=== PATIENT | male | born 1975 | race African-American/Black ===

== ENCOUNTER 2021-05-21 10:53 | Emergency (ER) | payer SELFPAY ==
[~2021-05-21] VITALS: Ht 185.4 cm; Wt 74.8 kg
--- NOTE | 2021-05-21 11:07 | NUR ---
THE PATIENT [id number], FROM [place] C/O ANXIETY. THE PATIENT IS ALERT AND ORIENTED X4. DENIES SI/HI. IN ROOM AIR AND DENIES SOB. BREATHING EVEN AND UNLABORED. ATTACHED TO THE MONITOR. WILL CONTINUE TO MONITOR THE PATIENT.
[2021-05-21] MEDS ORDERED: clonazePAM 1 MG TABLET PO ONE (11:30)
[2021-05-21] MEDS ORDERED: clonazePAM 1 MG TABLET ONE (11:37)
[2021-05-21 11:51] LABS: BASOPHILS # (AUTO) 0.1 K/uL (0.0-0.2); BASOPHILS % (AUTO) 0.7 % (0.0-2.0); EOSINOPHILS % (AUTO) 2.6 % (0.0-6.0); HEMATOCRIT 41 % (39-51); HEMOGLOBIN 13.9 g/dL (13.5-17.5); LYMPHOCYTES # (AUTO) 1.4 K/uL (0.8-4.8); LYMPHOCYTES % (AUTO) 20.6 % (20.0-44.0); MEAN CORPUSCULAR HGB CONC 34 g/dl (31.0-36.0); MEAN CORPUSCULAR VOLUME 92 fL (80-96); MONOCYTES # (AUTO) 0.5 K/uL (0.1-1.30); MONOCYTES % (AUTO) 6.5 % (2.0-12.0); NEUTROPHILS # (AUTO) 4.8 K/uL (1.8-8.9); NEUTROPHILS % (AUTO) 69.6 % (43.0-81.0); PLATELET COUNT (AUTO) 231 K/uL (150-450); RED BLOOD CELL COUNT(AUTO) 4.41 MIL/uL (4.5-6.0)
[2021-05-21 11:54] LABS: BILIRUBIN,URINE Negative (NEGATIVE); COLOR,URINE YELLOW (YELLOW); LEUKOCYTE ESTERASE ,URINE Negative (NEGATIVE); NITRITE, URINE Negative (NEGATIVE); PH,URINE 7.5 (5.0-8.0); PROTEIN,URINE Negative (NEGATIVE); UGLUCOSE Negative (NEGATIVE); UROBILINOGEN,URINE 0.2 EU/dL (0.2)
[2021-05-21 11:59] LABS: CALCIUM, SERUM 9.2 mg/dL (8.5-10.1); CARBON DIOXIDE 29 mmol/L (21-32); CHLORIDE 104 mmol/L (98-107); CREATININE 1.1 mg/dL (0.6-1.3); GLUCOSE 97 mg/dL (74-106); POTASSIUM 4.6 mmol/L (3.5-5.1); SODIUM SERUM 140 mmol/L (136-145); UREA NITROGEN, BLOOD 18 mg/dL (7-18)
[2021-05-21 12:12] LABS: ACETAMINOPHEN 0 ug/ml (10-30); ALANINE AMINOTRANSFERASE 21 U/L (12-78); ALBUMIN 3.9 g/dL (3.4-5.0); ALCOHOL, BLOOD < 3 mg/dL (0-0); ALKALINE PHOSPHATASE 103 U/L (46-116); ASPARTATE AMINOTRANSFERASE 24 U/L (15-37); BILIRUBIN,TOTAL 0.2 mg/dL (0.2-1.0); TOTAL PROTEIN, SERUM 7.2 g/dL (6.4-8.2)
--- NOTE | 2021-05-21 13:31 | NUR ---
THE PATIENT RESTING COMFORTABLY IN ER BED 13. DENIES HAVING ANY DISTRESS. BREATHING EVEN AND UNLABORED. WILL CONTINUE TO MONITOR THE PATIENT.
[2021-05-21] MEDS ORDERED: CLON1TAB PO (14:03)
--- NOTE | 2021-05-21 14:11 | NUR ---
Patient discharged to home in stable condition. Written and verbal after care instructions given. Patient verbalizes understanding of instruction.
[2021-05-21 14:14] VITALS: BP 129/76
--- NOTE | 2021-05-21 14:25 | NUR ---
SS Note: SW attempted to meet with pt. and SW was notified by nursing that pt. refused to wait for SS consult for homeless D/C and left stating he will look for correction placement himself.
== END 2021-05-21 14:14 | disposition home or self-care (01) ==
LOC: ER 11:09
DX: F29 Unspecified psychosis not due to a substance or known physiological condition (principal); R41.0 Disorientation, unspecified; Z59.0 Homelessness
CPT/HCPCS: 36415; 80048-TC; 80076-TC; 85025-TC; G0480

== ENCOUNTER 2021-05-31 12:12 | Emergency (ER) | payer MEDICAID ==
[~2021-05-31] VITALS: Ht 170.2 cm; Wt 73.5 kg
[~2021-05-31 12:12] MED LIST: CLON1TAB PO
--- NOTE | 2021-05-31 12:12 | NUR ---
PT [address]IB[address] C/O HEARING VOICES/HALLUCINATION. REQUESTING VOLUNTARY PSYCH ADMISSION TO [facility]. PT IS AAOX4, NOT IN RESPIRATORY DISTRESS, V/S STABLE, KEPT RESTED AND COMFORTABLE.
--- NOTE | 2021-05-31 12:20 | NUR ---
AT BEDSIDE FOR EVAL.
--- NOTE | 2021-05-31 12:26 | NUR ---
URINE SPECIMEN COLLECTED AND SENT TO LAB.
[2021-05-31] MEDS ORDERED: LORAZEPAM 1 MG TABLET ONE (12:29)
[2021-05-31] MEDS ORDERED: LORAZEPAM 1 MG TABLET PO ONE (12:30)
[2021-05-31 12:47] LABS: BILIRUBIN,URINE Negative (NEGATIVE); COLOR,URINE YELLOW (YELLOW); LEUKOCYTE ESTERASE ,URINE Negative (NEGATIVE); NITRITE, URINE Negative (NEGATIVE); PH,URINE 7.5 (5.0-8.0); PROTEIN,URINE Negative (NEGATIVE); UGLUCOSE Negative (NEGATIVE); UROBILINOGEN,URINE 0.2 EU/dL (0.2)
--- NOTE | 2021-05-31 12:48 | NUR ---
COVID SPECIMEN COLLECTED AND SENT TO LAB.
[2021-05-31 12:51] LABS: BASOPHILS # (AUTO) 0.1 K/uL (0.0-0.2); BASOPHILS % (AUTO) 0.6 % (0.0-2.0); EOSINOPHILS % (AUTO) 2.2 % (0.0-6.0); HEMATOCRIT 38 % (39-51); HEMOGLOBIN 12.9 g/dL (13.5-17.5); LYMPHOCYTES % (AUTO) 23.9 % (20.0-44.0); MEAN CORPUSCULAR HGB CONC 34 g/dl (31.0-36.0); MEAN CORPUSCULAR VOLUME 92 fL (80-96); MONOCYTES # (AUTO) 0.6 K/uL (0.1-1.30); MONOCYTES % (AUTO) 6.8 % (2.0-12.0); NEUTROPHILS # (AUTO) 5.5 K/uL (1.8-8.9); NEUTROPHILS % (AUTO) 66.5 % (43.0-81.0); PLATELET COUNT (AUTO) 242 K/uL (150-450); RED BLOOD CELL COUNT(AUTO) 4.16 MIL/uL (4.5-6.0); WHITE BLOOD COUNT (AUTO) 8.2 K/uL (4.3-11.0)
[2021-05-31 12:59] LABS: CARBON DIOXIDE 26 mmol/L (21-32); CHLORIDE 107 mmol/L (98-107); CREATININE 1.1 mg/dL (0.6-1.3); GLUCOSE 101 mg/dL (74-106); POTASSIUM 3.8 mmol/L (3.5-5.1); SODIUM SERUM 144 mmol/L (136-145); UREA NITROGEN, BLOOD 16 mg/dL (7-18)
[2021-05-31 13:06] LABS: ACETAMINOPHEN < 10 ug/ml (10-30); ALANINE AMINOTRANSFERASE 22 U/L (12-78); ALBUMIN 3.7 g/dL (3.4-5.0); ALCOHOL, BLOOD < 3 mg/dL (0-0); ALKALINE PHOSPHATASE 78 U/L (46-116); ASPARTATE AMINOTRANSFERASE 19 U/L (15-37); BILIRUBIN,DIRECT 0.1 mg/dL (0.0-0.2); BILIRUBIN,TOTAL 0.3 mg/dL (0.2-1.0); TOTAL PROTEIN, SERUM 6.8 g/dL (6.4-8.2)
--- NOTE | 2021-05-31 16:50 | NUR ---
CALLED [facility] FOR UPDATE. STILL BEING REVIEWED BY NURSING MICROBIAL SPECIALIST.
[2021-05-31 17:23] VITALS: BP 115/60
--- NOTE | 2021-05-31 17:24 | NUR ---
CHAS CALLED PT ACCEPTED TO [facility] UNIT [address] ABEL PLEASE CALL [phone] FOR REPORT.
[2021-05-31] MEDS ORDERED: METFORMIN 500 MG TABLET PO ONE (17:30)
--- NOTE | 2021-05-31 17:30 | NUR ---
TRANSPORT [facility] CALLED ETA 5 MINS PER TANISHA.
--- NOTE | 2021-05-31 17:47 | NUR ---
REPORT GIVEN TO EMS FOR PT TRANSFER TO [facility].
== END 2021-05-31 17:50 ==
LOC: ER 12:29
DX: R44.1 Visual hallucinations (principal); R44.0 Auditory hallucinations; F41.9 Anxiety disorder, unspecified; Z59.0 Homelessness; Z20.822 Contact with and (suspected) exposure to COVID-19; Z82.49 Family history of ischemic heart disease and other diseases of the circulatory system
CPT/HCPCS: 36415; 80048; 80076; 80143; 80307; 80320; 81003; 85025; 87426; 99285; C9803; G0480

== ENCOUNTER 2021-06-06 17:51 | Emergency (ER) | payer MEDICAID ==
[~2021-06-06] VITALS: Ht 185.4 cm; Wt 77.1 kg
--- NOTE | 2021-06-06 18:05 | NUR ---
URINE SPECIMEN COLLECTED AND SENT TO LAB.
--- NOTE | 2021-06-06 18:07 | NUR ---
SEEN AND EXAMINED BY STEPAN ALICEA
[2021-06-06 18:50] LABS: BILIRUBIN,URINE NEGATIVE (NEGATIVE); COLOR,URINE YELLOW (YELLOW); LEUKOCYTE ESTERASE ,URINE NEGATIVE (NEGATIVE); NITRITE, URINE NEGATIVE (NEGATIVE); PROTEIN,URINE NEGATIVE (NEGATIVE); UGLUCOSE NEGATIVE (NEGATIVE); UROBILINOGEN,URINE 0.2 EU/dL (0.2)
[2021-06-06 19:04] LABS: ALANINE AMINOTRANSFERASE 27 U/L (12-78); ALBUMIN 4.1 g/dL (3.4-5.0); ALKALINE PHOSPHATASE 104 U/L (46-116); ASPARTATE AMINOTRANSFERASE 21 U/L (15-37); BILIRUBIN,DIRECT 0.1 mg/dL (0.0-0.2); BILIRUBIN,TOTAL 0.3 mg/dL (0.2-1.0); CALCIUM, SERUM 8.9 mg/dL (8.5-10.1); CARBON DIOXIDE 29 mmol/L (21-32); CHLORIDE 103 mmol/L (98-107); CREATININE 1.1 mg/dL (0.6-1.3); GLUCOSE 119 mg/dL (74-106); POTASSIUM 4.1 mmol/L (3.5-5.1); SODIUM SERUM 141 mmol/L (136-145); TOTAL PROTEIN, SERUM 7.8 g/dL (6.4-8.2); UREA NITROGEN, BLOOD 21 mg/dL (7-18)
[2021-06-06 19:05] LABS: ACETAMINOPHEN < 10 ug/ml (10-30); ALCOHOL, BLOOD < 3 mg/dL (0-0)
[2021-06-06 20:06] LABS: BASOPHILS % (AUTO) 0.4 % (0.0-2.0); EOSINOPHILS % (AUTO) 3.3 % (0.0-6.0); HEMATOCRIT 42 % (39-51); HEMOGLOBIN 14.5 g/dL (13.5-17.5); LYMPHOCYTES # (AUTO) 1.4 K/uL (0.8-4.8); LYMPHOCYTES % (AUTO) 25.7 % (20.0-44.0); MEAN CORPUSCULAR HGB CONC 34 g/dl (31.0-36.0); MEAN CORPUSCULAR VOLUME 92 fL (80-96); MONOCYTES # (AUTO) 0.6 K/uL (0.1-1.30); MONOCYTES % (AUTO) 10.6 % (2.0-12.0); NEUTROPHILS # (AUTO) 3.2 K/uL (1.8-8.9); PLATELET COUNT (AUTO) 227 K/uL (150-450); RED BLOOD CELL COUNT(AUTO) 4.61 MIL/uL (4.5-6.0); WHITE BLOOD COUNT (AUTO) 5.3 K/uL (4.3-11.0)
--- NOTE | 2021-06-06 20:33 | NUR ---
COVID AG SWAB DONE AND SENT TO LAB
--- NOTE | 2021-06-06 23:10 | NUR ---
FAXED FACESHEET AND CLINICALS TO [facility]
--- NOTE | 2021-06-07 00:46 | NUR ---
PATIENT ACCEPTED [facility]. DR ABEL, CALL FOR REPORT
--- NOTE | 2021-06-07 00:48 | NUR ---
[facility] ETA [phone]
--- NOTE | 2021-06-07 01:27 | NUR ---
REPORT GIVEN TO [facility], NURSE NEEDS TO TALK TO SUPERVIOR NO BED AVAILABLE.
--- NOTE | 2021-06-07 01:42 | NUR ---
REPORT GIVEN TO EMS. PATIENT GOING TO [facility]
[2021-06-07 02:14] VITALS: BP 111/64
== END 2021-06-07 01:43 ==
LOC: ER 17:59
DX: R45.851 Suicidal ideations (principal); F29 Unspecified psychosis not due to a substance or known physiological condition; Z20.822 Contact with and (suspected) exposure to COVID-19
CPT/HCPCS: 36415; 80048; 80076; 80143; 80307; 80320; 81003; 85025; 87426; 99285; C9803; G0480

== ENCOUNTER 2021-06-17 05:45 | Emergency (ER) | payer MEDICAID ==
[~2021-06-17] VITALS: Ht 185.4 cm; Wt 852.8 kg
[2021-06-17 05:51] VITALS: BP 108/70
[2021-06-17] MEDS ORDERED: ZOLP5TAB2 PO (06:19)
== END 2021-06-17 06:30 | disposition home or self-care (01) ==
LOC: ER 05:48
DX: G47.00 Insomnia, unspecified (principal); F41.9 Anxiety disorder, unspecified; F17.200 Nicotine dependence, unspecified, uncomplicated; Z59.00 Homelessness unspecified; Z79.899 Other long term (current) drug therapy

== ENCOUNTER 2021-06-17 15:54 | Emergency (ER) | payer MEDICAID ==
[~2021-06-17] VITALS: Ht 185.4 cm; Wt 83.5 kg
[~2021-06-17 15:54] MED LIST changes: +ZOLP5TAB2 PO
--- NOTE | 2021-06-17 16:00 | NUR ---
Patient came in to the er c/o suicidal thoughts " i want to OD on OTC pills". On room air, breathing evenly and unlabored. Sitter at bedside for constant monitoring. Will continue to monitor accordingly.
[2021-06-17 16:19] LABS: BASOPHILS % (AUTO) 0.5 % (0.0-2.0); EOSINOPHILS % (AUTO) 4.1 % (0.0-6.0); HEMATOCRIT 43 % (39-51); HEMOGLOBIN 14.6 g/dL (13.5-17.5); LYMPHOCYTES % (AUTO) 27.3 % (20.0-44.0); MEAN CORPUSCULAR HGB CONC 34 g/dl (31.0-36.0); MEAN CORPUSCULAR VOLUME 92 fL (80-96); MONOCYTES # (AUTO) 0.8 K/uL (0.1-1.30); MONOCYTES % (AUTO) 11.7 % (2.0-12.0); NEUTROPHILS # (AUTO) 4.1 K/uL (1.8-8.9); NEUTROPHILS % (AUTO) 56.4 % (43.0-81.0); PLATELET COUNT (AUTO) 227 K/uL (150-450); WHITE BLOOD COUNT (AUTO) 7.3 K/uL (4.3-11.0)
[2021-06-17 16:26] LABS: CALCIUM, SERUM 8.9 mg/dL (8.5-10.1); CARBON DIOXIDE 27 mmol/L (21-32); CHLORIDE 106 mmol/L (98-107); CREATININE 1.2 mg/dL (0.6-1.3); GLUCOSE 93 mg/dL (74-106); SODIUM SERUM 141 mmol/L (136-145); UREA NITROGEN, BLOOD 17 mg/dL (7-18)
[2021-06-17] MEDS ORDERED: LORAZEPAM 1 MG TABLET ONE (16:28)
[2021-06-17] MEDS ORDERED: LORAZEPAM 1 MG TABLET PO ONE (16:30)
[2021-06-17 16:32] LABS: ALANINE AMINOTRANSFERASE 30 U/L (12-78); ALBUMIN 3.9 g/dL (3.4-5.0); ALCOHOL, BLOOD < 3 mg/dL (0-0); ALKALINE PHOSPHATASE 96 U/L (46-116); ASPARTATE AMINOTRANSFERASE 20 U/L (15-37); BILIRUBIN,DIRECT 0.1 mg/dL (0.0-0.2); BILIRUBIN,TOTAL 0.3 mg/dL (0.2-1.0); TOTAL PROTEIN, SERUM 7.3 g/dL (6.4-8.2)
--- NOTE | 2021-06-17 16:32 | NUR ---
covid swab and urine collected and sent to lab.
[2021-06-17 16:33] LABS: ACETAMINOPHEN < 0 ug/ml (10-30)
[2021-06-17 16:38] LABS: BILIRUBIN,URINE Negative (NEGATIVE); COLOR,URINE YELLOW (YELLOW); LEUKOCYTE ESTERASE ,URINE Negative (NEGATIVE); NITRITE, URINE Negative (NEGATIVE); PROTEIN,URINE Negative (NEGATIVE); UGLUCOSE Negative (NEGATIVE); UROBILINOGEN,URINE 0.2 EU/dL (0.2)
[2021-06-17 16:42] LABS: RBC,URINE 0-2 /HPF (0-2); WBC,URINE 0-2 /HPF (0-3)
[2021-06-17 16:43] LABS: BACTERIA,URINE Few /HPF (None Seen); SQUAMOUS EPITHELIAL CELL,UR Few /HPF (None Seen); URINE AMORPHOUS URATE Moderate /HPF (None Seen)
--- NOTE | 2021-06-17 17:45 | NUR ---
FAXED CLINICALS TO [facility].
--- NOTE | 2021-06-17 18:07 | NUR ---
CALLED [facility] TO FOLLOW UP ON ACCEPTANCE, THEY WILL CALL US BACK.
--- NOTE | 2021-06-17 20:13 | NUR ---
CALLED [facility] WILL UPDATE US IN A FEW MINS.
--- NOTE | 2021-06-17 20:55 | NUR ---
PER ART AT [facility]; PT GOT ACCEPTED AT [facility] BY DR NEUMANN, UNIT 2, # FOR REPORT: [phone]
--- NOTE | 2021-06-17 21:06 | NUR ---
[facility] ARRANGED
--- NOTE | 2021-06-17 22:02 | NUR ---
REPORT GIVEN TO ROX
--- NOTE | 2021-06-17 22:55 | NUR ---
[facility] AT BEDSIDE TO CATALYST OPERATOR THE PT. REPORT GIVEN
[2021-06-17 23:08] VITALS: BP 127/72
== END 2021-06-17 22:55 ==
LOC: ER 15:55
DX: R45.851 Suicidal ideations (principal); F25.9 Schizoaffective disorder, unspecified; F41.9 Anxiety disorder, unspecified; Z20.822 Contact with and (suspected) exposure to COVID-19; F32.A Depression, unspecified
CPT/HCPCS: 36415; 80048; 80076; 80143; 80307; 80320; 81001; 85025; 87426; 99285; C9803; G0480

== ENCOUNTER 2021-06-26 19:16 | Emergency (ER) | payer MEDICAID ==
[~2021-06-26] VITALS: Ht 185.4 cm; Wt 81.6 kg
[2021-06-26 22:47] VITALS: BP 132/62
[2021-06-26] MEDS ORDERED: LORA-259 PO (22:49)
--- NOTE | 2021-06-26 22:51 | NUR ---
Patient discharged to home in stable condition. Written and verbal after care instructions given. Patient verbalizes understanding of instruction.
== END 2021-06-26 22:52 | disposition home or self-care (01) ==
LOC: ER 19:24
DX: F41.9 Anxiety disorder, unspecified (principal); Z76.0 Encounter for issue of repeat prescription; G47.00 Insomnia, unspecified; F17.200 Nicotine dependence, unspecified, uncomplicated; Z60.2 Problems related to living alone; Z79.899 Other long term (current) drug therapy

== ENCOUNTER 2021-07-08 08:16 | Emergency (ER) | payer SELFPAY ==
[~2021-07-08] VITALS: Ht 185.4 cm; Wt 81.6 kg
[~2021-07-08 08:16] MED LIST changes: +LORA-259 PO
--- NOTE | 2021-07-08 08:45 | NUR ---
THE PATIENT BIBS FOR FEELING ANXIOUS, HAVING AUDITORY HALLUCINATIONS BUT CAN`T RECALL WHAT ARE THE VOICES SAYING. DENIES SI/HI. THE PATIENT WANTS TO GO TO [facility]. ALERT AND ORIENTED X4. DENIES PAIN. IN ROOM AIR AND DENIES SOB. RESPIRATION REGULAR AND UNLABORED. WILL CONTINUE TO MONITOR THE PATIENT.
--- NOTE | 2021-07-08 09:04 | NUR ---
URINE COLLECTED AND SENT TO THE LAB
--- NOTE | 2021-07-08 09:09 | NUR ---
COVID SWAB DONE AND SENT TO THE LAB
[2021-07-08 09:24] LABS: BASOPHILS % (AUTO) 0.3 % (0.0-2.0); EOSINOPHILS % (AUTO) 3.8 % (0.0-6.0); HEMATOCRIT 43 % (39-51); HEMOGLOBIN 14.5 g/dL (13.5-17.5); LYMPHOCYTES # (AUTO) 1.8 K/uL (0.8-4.8); MEAN CORPUSCULAR HGB CONC 34 g/dl (31.0-36.0); MEAN CORPUSCULAR VOLUME 92 fL (80-96); MONOCYTES # (AUTO) 0.6 K/uL (0.1-1.30); MONOCYTES % (AUTO) 8.4 % (2.0-12.0); NEUTROPHILS # (AUTO) 4.2 K/uL (1.8-8.9); NEUTROPHILS % (AUTO) 61.5 % (43.0-81.0); PLATELET COUNT (AUTO) 215 K/uL (150-450); RED BLOOD CELL COUNT(AUTO) 4.63 MIL/uL (4.5-6.0); WHITE BLOOD COUNT (AUTO) 6.8 K/uL (4.3-11.0)
[2021-07-08 09:26] LABS: BILIRUBIN,URINE NEGATIVE (NEGATIVE); COLOR,URINE YELLOW (YELLOW); LEUKOCYTE ESTERASE ,URINE NEGATIVE (NEGATIVE); NITRITE, URINE NEGATIVE (NEGATIVE); PROTEIN,URINE NEGATIVE (NEGATIVE); UGLUCOSE NEGATIVE (NEGATIVE); UROBILINOGEN,URINE 0.2 EU/dL (0.2)
[2021-07-08 09:40] LABS: CALCIUM, SERUM 8.7 mg/dL (8.5-10.1); CARBON DIOXIDE 30 mmol/L (21-32); CHLORIDE 106 mmol/L (98-107); CREATININE 1.2 mg/dL (0.6-1.3); GLUCOSE 83 mg/dL (74-106); POTASSIUM 3.6 mmol/L (3.5-5.1); SODIUM SERUM 142 mmol/L (136-145); UREA NITROGEN, BLOOD 11 mg/dL (7-18)
[2021-07-08 09:44] LABS: ACETAMINOPHEN < 10 ug/ml (10-30); ALANINE AMINOTRANSFERASE 53 U/L (12-78); ALBUMIN 3.9 g/dL (3.4-5.0); ALCOHOL, BLOOD < 3 mg/dL (0-0); ALKALINE PHOSPHATASE 107 U/L (46-116); ASPARTATE AMINOTRANSFERASE 35 U/L (15-37); BILIRUBIN,DIRECT 0.1 mg/dL (0.0-0.2); BILIRUBIN,TOTAL 0.3 mg/dL (0.2-1.0); TOTAL PROTEIN, SERUM 7.4 g/dL (6.4-8.2)
[2021-07-08] MEDS ORDERED: LORAZEPAM 1 MG TABLET ONE (09:57)
[2021-07-08] MEDS ORDERED: LORAZEPAM 1 MG TABLET PO ONE (10:00)
--- NOTE | 2021-07-08 12:03 | NUR ---
THE PATIENT IS HAVING LUNCH. TOLERATES PROVIDED MEAL WELL.
--- NOTE | 2021-07-08 13:00 | NUR ---
FAXED CLINICALS TO [facility] [place].
[2021-07-08 14:30] VITALS: BP 117/65
[2021-07-08] MEDS ORDERED: CLON1TAB12 PO (15:05)
--- NOTE | 2021-07-08 15:13 | NUR ---
"SS consult: SS consult requested for homelessness & mental health concerns. Pt. is a 45-year-old male who presented to the ER wanting medical clearance to go to [facility][[address] [place] [address] FAX:[phone]] for medication adjustement per pt. Per the EMR, pt. is homeless and is feeling anxious. Upon SS consult, pt. is A&O x4 and appears unkempt. Pt. presents with an anxious mood and speech is WNL. Pt. was pleasant & cooperative throughout SS assessment. SW explored pt. 's living situation and pt. he has been homeless for three months. SW offered homeless resources and pt. accepted. Pt. stated he will be moving into transitional housing on July 13. Pt. stated he receives SSDI & EBT. SW explored pt.'s psychiatric history. Pt. stated he has been diagnosed with Generalized Anxiety Disorder and Insomnia. However, pt. also stated he is currently not on medicationa dn that is why he is seeking medical attention. Pt. stated he is having auditory hallucinations due to his chronic insomnia. Pt. stated he wants medication so he can sleep at night. Pt. denies current SI and stated he had SI a month ago and denies current SI. Pt. denies HI and denies visual hallucinations. SW explored pt.'s support system and pt. states he has some family who he keeps in contact with. Pt. signed homeless waive and it was placed in the pt.'s chart. DANIELE provided pt. with homeless resources and pt. accepted them. Plan: Pt. was referred to [facility] [[address] [place] [address] FAX:[phone]] for inpatient psychiatric treatment. DANIELE was notified that pt. was not accepted. DANIELE provided pt. with outpatient mental health resources and pt. accepted them. Mental Health resources provided: [facility] [address] [place] [address] ; [facility], [facility]. [address] [facility] [address], [place] [address] ; [facility] [address] [place] [address] ; [facility] [address] [place], [place] [id number] Healthcare Clinics: [facility] [address] [facility], [address] [place]. [place] ; [facility] [address] [facility] [address] [place] [address]; [facility] [address] [place] [address] [phone]) [phone] Counseling--Outpatient [facility] [address] [facility], [place] [address] (Specializes in in-depth psychotherapy for emotional distress: anxiety, depression, interpersonal conflicts, life transitions, childhood abuse) [facility] [address] [place] [address] (Assist with solving problem marital difficulties, separation & divorce, aging parents, & grief, chronic & terminal illness) [facility] [address] [place] [address] (Deal with loss & grief, anxiety, marital difficulties) Homebound/Mental Health Services [address] [facility], [address] [place] [address] (Provide in-home mental services to people who are incapable of leaving their homes) [facility] for Needs of the Elderly Senior Service/Resource Center [address] [place] [address] [facility] [address] [facility] [place] [address] [address] [facility] Partial Hospitalization and Intensive Outpatient Program (Managed Care and [place] Only)[address] N[address]. [facility] [phone] [facility] Partial Hospitalization and Outpatient Oewcdjy[address] [place], [place] [phone] KENY EDGAR [facility] [id number] [address]den [facility]. [address] [place], [place] [phone] [facility] Partial Hospitalization and Outpatient [id number] Shavon Mclain, [phone] Substance Abuse resources provided included: [facility] Substance Abuse Self-Helpline ([facility]) ; CRI -HELP [address] [facility]. [place] [address] ; [facility] [address] [facility] [address] ; [facility] [address] [facility] [place] [address] ; [facility] [address] [facility] [phone] ; [facility] [address] [facility] [address] ; [facility] [address] [facility] [phone] ; [facility] Substance Abuse Helpline([facility] ; [facility] ; [facility] [place]; [facility] [place]; Cri[facility]Help [place]; [facility] Keny kelin; [place] [facility]; [place]; [facility] [place] [facility]; [facility]'s [place] [facility] [place]; Alcoholics Anonymous -SFV; Md-Fgtx-Uzninqc ; Marijuana Anonymous -SFV; Narcotics Anonymous www.na.org; Year-round shelters: [facility] [place] [address] [place] [address] ; [facility] [place] [address] [place] [address]; [facility] [address] [facility] [address] Winter Shelters: Bob Durand [place] Provider: [facility] Address: [address] [place], [address] # of Beds: 47 Population Served: [facility] 6 | [facility] Bernice Elias [place] Provider: [facility] Last Address: [address] [facility], [address] # of Beds: 66 Population Served: [facility] Yuhaaviatam [place] Provider: First to Serve Address: [address] [facility], [address] # of Beds: 56 Population Served: [facility] Hernán [place] Provider: [facility] Address: [address] [facility], [address] # of Beds: 49 Population Served: [facility] SPA 8 | [facility] Provider: First to Serve Address: [address] [place], [address] # of Beds: 37 Population Served: [facility] Hygiene: [facility] [place]: [address] Juvebeth Enriquez ; [place] [facility] [address] [facility] ; [facility] 5[address] Keny Tejeda . Food Resources: [place] [facility] at [facility]- [address]. [place]; Meet Each Need with Dignity ([facility]) [address] [address]; [facility] [address] Avjoanna [place]; [facility] [address]71 Jelly Reaves."
[2021-07-26] MEDS ORDERED: CALC355O18 PO (00:06)
[2021-07-26] MEDS ORDERED: ZOLP10TA2 PO (00:06)
[2021-07-26] MEDS ORDERED: OMEP40CA21 PO (00:09)
== END 2021-07-08 15:30 | disposition home or self-care (01) ==
LOC: ER 08:19
DX: G47.00 Insomnia, unspecified (principal); Z59.01 Sheltered homelessness; F41.9 Anxiety disorder, unspecified; F32.A Depression, unspecified; F17.200 Nicotine dependence, unspecified, uncomplicated; Z20.822 Contact with and (suspected) exposure to COVID-19; Z53.8 Procedure and treatment not carried out for other reasons
CPT/HCPCS: 36415; 80048; 80076; 80143; 80307; 80320; 81003; 85025; 87426; 99283; C9803; G0480

== ENCOUNTER 2021-07-17 18:20 | Emergency (ER) | payer MEDICAID ==
[~2021-07-17] VITALS: Ht 185.4 cm; Wt 81.6 kg
[2021-07-17 18:54] VITALS: BP 113/81
[2021-07-17 19:22] LABS: BASOPHILS % (AUTO) 0.5 % (0.0-2.0); EOSINOPHILS % (AUTO) 2.8 % (0.0-6.0); HEMATOCRIT 41 % (39-51); HEMOGLOBIN 13.6 g/dL (13.5-17.5); LYMPHOCYTES # (AUTO) 2.3 K/uL (0.8-4.8); LYMPHOCYTES % (AUTO) 30.1 % (20.0-44.0); MEAN CORPUSCULAR HGB CONC 33 g/dl (31.0-36.0); MEAN CORPUSCULAR VOLUME 94 fL (80-96); MONOCYTES # (AUTO) 0.7 K/uL (0.1-1.30); MONOCYTES % (AUTO) 8.4 % (2.0-12.0); NEUTROPHILS # (AUTO) 4.5 K/uL (1.8-8.9); NEUTROPHILS % (AUTO) 58.2 % (43.0-81.0); PLATELET COUNT (AUTO) 249 K/uL (150-450); RED BLOOD CELL COUNT(AUTO) 4.38 MIL/uL (4.5-6.0); WHITE BLOOD COUNT (AUTO) 7.8 K/uL (4.3-11.0)
--- NOTE | 2021-07-17 19:40 | NUR ---
URINE COLLECTED AND SENT TO LAB
[2021-07-17 19:44] LABS: CALCIUM, SERUM 8.5 mg/dL (8.5-10.1); CARBON DIOXIDE 29 mmol/L (21-32); CHLORIDE 105 mmol/L (98-107); GLUCOSE 70 mg/dL (74-106); POTASSIUM 3.6 mmol/L (3.5-5.1); SODIUM SERUM 140 mmol/L (136-145); UREA NITROGEN, BLOOD 13 mg/dL (7-18)
[2021-07-17 19:50] LABS: ACETAMINOPHEN 3 ug/ml (10-30); ALANINE AMINOTRANSFERASE 14 U/L (12-78); ALBUMIN 3.8 g/dL (3.4-5.0); ALCOHOL, BLOOD < 3 mg/dL (0-0); ALKALINE PHOSPHATASE 93 U/L (46-116); ASPARTATE AMINOTRANSFERASE 17 U/L (15-37); BILIRUBIN,DIRECT 0.1 mg/dL (0.0-0.2); BILIRUBIN,TOTAL 0.1 mg/dL (0.2-1.0); TOTAL PROTEIN, SERUM 7.3 g/dL (6.4-8.2)
[2021-07-17] MEDS ORDERED: clonazePAM 1 MG TABLET PO ONE (20:00)
[2021-07-17 20:01] LABS: BILIRUBIN,URINE Negative (NEGATIVE); COLOR,URINE YELLOW (YELLOW); LEUKOCYTE ESTERASE ,URINE Negative (NEGATIVE); NITRITE, URINE Negative (NEGATIVE); PROTEIN,URINE Negative (NEGATIVE); UGLUCOSE Negative (NEGATIVE); UROBILINOGEN,URINE 0.2 EU/dL (0.2)
--- NOTE | 2021-07-17 20:15 | NUR ---
PT IS NOT IN ROOM. CHECKED IN THE RESTROOM AND OUTSIDE OF THE R BUT NO WHERE TO BE FOUND. PT WAS LAST SEEN WHEN URINE WAS COLLECTED. MADE AWARE
[2021-07-26] MEDS ORDERED: CALC355O18 PO (00:06)
[2021-07-26] MEDS ORDERED: ZOLP10TA2 PO (00:06)
[2021-07-26] MEDS ORDERED: OMEP40CA21 PO (00:09)
== END 2021-07-17 20:20 | disposition left against medical advice (07) ==
LOC: ER 18:24
DX: R44.0 Auditory hallucinations (principal); R44.1 Visual hallucinations; F41.9 Anxiety disorder, unspecified; G47.00 Insomnia, unspecified; Z60.2 Problems related to living alone; Z79.899 Other long term (current) drug therapy
CPT/HCPCS: 36415; 80048-TC; 80076-TC; 85025-TC; G0480

== ENCOUNTER 2021-07-18 11:42 | Emergency (ER) | payer MEDICAID ==
[~2021-07-18] VITALS: Ht 185.4 cm; Wt 81.6 kg
--- NOTE | 2021-07-18 12:00 | NUR ---
PT BIB SELF RQUESTING MED CLEARANCE FOR VOLUNTARY PSYCH ADMISSION TO [facility]. DENIES SI/HI. PT IS AAOX4, NOT IN RESPIRATORY DISTRESS, V/S STABLE, KEPT RESTED AND COMFORTABLE. WILL CONTINUE TO MONITOR.
--- NOTE | 2021-07-18 12:05 | NUR ---
URINE SPECIMEN COLLECTED AND SENT TO LAB.
[2021-07-18] MEDS ORDERED: OLANZAPINE 5 MG TABLET PO ONE (12:30)
[2021-07-18 12:49] LABS: BASOPHILS % (AUTO) 0.4 % (0.0-2.0); EOSINOPHILS % (AUTO) 3.3 % (0.0-6.0); HEMATOCRIT 41 % (39-51); HEMOGLOBIN 13.7 g/dL (13.5-17.5); LYMPHOCYTES # (AUTO) 1.6 K/uL (0.8-4.8); LYMPHOCYTES % (AUTO) 30.8 % (20.0-44.0); MEAN CORPUSCULAR HGB CONC 34 g/dl (31.0-36.0); MEAN CORPUSCULAR VOLUME 93 fL (80-96); MONOCYTES # (AUTO) 0.4 K/uL (0.1-1.30); MONOCYTES % (AUTO) 7.2 % (2.0-12.0); NEUTROPHILS % (AUTO) 58.3 % (43.0-81.0); PLATELET COUNT (AUTO) 241 K/uL (150-450); WHITE BLOOD COUNT (AUTO) 5.2 K/uL (4.3-11.0)
[2021-07-18 12:53] LABS: BILIRUBIN,URINE NEGATIVE (NEGATIVE); COLOR,URINE YELLOW (YELLOW); LEUKOCYTE ESTERASE ,URINE NEGATIVE (NEGATIVE); NITRITE, URINE NEGATIVE (NEGATIVE); PROTEIN,URINE NEGATIVE (NEGATIVE); UGLUCOSE NEGATIVE (NEGATIVE); UROBILINOGEN,URINE 0.2 EU/dL (0.2)
--- NOTE | 2021-07-18 13:18 | NUR ---
COVID SWAB COLLECTED AND SENT TO LAB
[2021-07-18 13:19] LABS: CALCIUM, SERUM 8.6 mg/dL (8.5-10.1); CARBON DIOXIDE 29 mmol/L (21-32); CHLORIDE 105 mmol/L (98-107); CREATININE 1.1 mg/dL (0.6-1.3); GLUCOSE 110 mg/dL (74-106); POTASSIUM 3.8 mmol/L (3.5-5.1); SODIUM SERUM 139 mmol/L (136-145); UREA NITROGEN, BLOOD 11 mg/dL (7-18)
[2021-07-18 13:24] LABS: ALANINE AMINOTRANSFERASE 24 U/L (12-78); ALBUMIN 3.8 g/dL (3.4-5.0); ALKALINE PHOSPHATASE 90 U/L (46-116); ASPARTATE AMINOTRANSFERASE 17 U/L (15-37); BILIRUBIN,DIRECT 0.1 mg/dL (0.0-0.2); BILIRUBIN,TOTAL 0.2 mg/dL (0.2-1.0); TOTAL PROTEIN, SERUM 7.3 g/dL (6.4-8.2)
[2021-07-18 13:28] LABS: ALCOHOL, BLOOD < 3 mg/dL (0-0)
--- NOTE | 2021-07-18 16:38 | NUR ---
TRANSFER INFO: PT ACCEPTED AT [facility] BY DR NEUMANN, RN FOR REPORT [phone], ETA 45 MIN TO 1 HOUR
[2021-07-26] MEDS ORDERED: ZOLP10TA2 PO (00:06)
[2021-07-26] MEDS ORDERED: CALC355O18 PO (00:06)
[2021-07-26] MEDS ORDERED: OMEP40CA21 PO (00:09)
[2021-08-04 08:17] VITALS: BP 127/66
== END 2021-07-18 16:03 ==
LOC: ER 11:51
DX: F32.A Depression, unspecified (principal); F25.9 Schizoaffective disorder, unspecified; F41.9 Anxiety disorder, unspecified; F17.200 Nicotine dependence, unspecified, uncomplicated; Z59.00 Homelessness unspecified; G47.00 Insomnia, unspecified; Z79.899 Other long term (current) drug therapy; Z20.822 Contact with and (suspected) exposure to COVID-19
CPT/HCPCS: 36415; 80048; 80076; 80307; 80320; 81003; 85025; 87426; 99285; C9803; G0480

== ENCOUNTER 2021-08-17 04:33 | Emergency (ER) | payer MEDICAID ==
[~2021-08-17] VITALS: Ht 185.4 cm; Wt 86.2 kg
[~2021-08-17 04:33] MED LIST changes: +CALC355O18 PO; +OMEP40CA21 PO; +ZOLP10TA2 PO
[2021-08-17 04:50] VITALS: BP 143/79
[2021-08-17] MEDS ORDERED: CLON0.122 PO (04:59)
[2021-08-17] MEDS ORDERED: ZOLP10TA2 PO (04:59)
--- NOTE | 2021-08-17 05:01 | NUR ---
Patient discharged to home in stable condition. Written and verbal after care instructions given. Patient verbalizes understanding of instruction. RX GIVEN
== END 2021-08-17 05:02 | disposition home or self-care (01) ==
LOC: ER 04:35
DX: Z76.0 Encounter for issue of repeat prescription (principal); F41.9 Anxiety disorder, unspecified; G47.00 Insomnia, unspecified; F25.9 Schizoaffective disorder, unspecified; F17.200 Nicotine dependence, unspecified, uncomplicated; Z60.2 Problems related to living alone; Z79.899 Other long term (current) drug therapy

== ENCOUNTER 2021-11-01 17:31 | Emergency (ER) | payer SELFPAY ==
[~2021-11-01] VITALS: Ht 185.4 cm; Wt 90.7 kg
[~2021-11-01 17:31] MED LIST changes: +CLON0.122 PO
--- NOTE | 2021-11-01 18:06 | NUR ---
TO ER BED 14, C/O ABD PAIN WITH DIARRHEA & VOMITING SINCE THIS AM. HX OF ULCERATIVE COLITIS, P/S 03/21, AAOX3, BREATHING EVEN AND NON LABORED, AWAITING MD FERGUSON
[2021-11-01] MEDS ORDERED: MAG HYDROX/AL HYDROX/SIMETH 30 ML UDC ONE (19:17)
[2021-11-01] MEDS ORDERED: LIDOCAINE VISCOUS 2% UD 15 ML UDC ONE (19:17)
[2021-11-01] MEDS ORDERED: MAG HYDROX/AL HYDROX/SIMETH 30 ML UDC PO ONE (19:30)
[2021-11-01] MEDS ORDERED: LIDOCAINE VISCOUS 2% UD 15 ML UDC MM ONE (19:30)
[2021-11-01] MEDS ORDERED: OMEP20CA15 PO (20:35)
--- NOTE | 2021-11-01 20:55 | NUR ---
Patient discharged to home in stable condition. Written and verbal after care instructions given. Patient verbalizes understanding of instruction. PT ambulatory with a steady gait
[2021-11-01] MEDS ORDERED: [UNRECOGNIZED DRUG - CODE] PO (20:56)
[2021-11-01 20:57] VITALS: BP 121/75
== END 2021-11-01 20:55 | disposition home or self-care (01) ==
LOC: ER 17:45
DX: K29.70 Gastritis, unspecified, without bleeding (principal); F41.9 Anxiety disorder, unspecified; G47.00 Insomnia, unspecified; F25.9 Schizoaffective disorder, unspecified; F17.200 Nicotine dependence, unspecified, uncomplicated; Z59.00 Homelessness unspecified; Z79.899 Other long term (current) drug therapy

== ENCOUNTER 2021-11-14 16:07 | Emergency (ER) | payer MEDICAID ==
[~2021-11-14] VITALS: Ht 185.4 cm; Wt 84.8 kg
[~2021-11-14 16:07] MED LIST changes: +OMEP20CA15 PO; +[UNRECOGNIZED DRUG - CODE] PO
--- NOTE | 2021-11-14 16:16 | NUR ---
TO ER BED 12, BIB SELF C/O HEADACHE STARTED 3 HRS AGO, AAOX3, BRATHING EVEN AND NON LABORED, CONNECTED TO MONITOR, AWAITING MD FERGUSON
--- NOTE | 2021-11-14 16:20 | NUR ---
DR GREENWOOD AT BEDSIDE
[2021-11-14] MEDS ORDERED: ACETAMINOPHEN ES 500 MG TABLET ONE (16:48)
[2021-11-14] MEDS ORDERED: LORAZEPAM 0.5 MG TABLET ONE (16:48)
[2021-11-14 16:57] LABS: BASOPHILS % (AUTO) 0.6 % (0.0-2.0); EOSINOPHILS % (AUTO) 1.4 % (0.0-6.0); HEMATOCRIT 43 % (39-51); HEMOGLOBIN 14.7 g/dL (13.5-17.5); LYMPHOCYTES # (AUTO) 1.8 K/uL (0.8-4.8); LYMPHOCYTES % (AUTO) 20.5 % (20.0-44.0); MEAN CORPUSCULAR HGB CONC 34 g/dl (31.0-36.0); MEAN CORPUSCULAR VOLUME 90 fL (80-96); MONOCYTES # (AUTO) 0.6 K/uL (0.1-1.30); MONOCYTES % (AUTO) 6.8 % (2.0-12.0); NEUTROPHILS # (AUTO) 6.1 K/uL (1.8-8.9); NEUTROPHILS % (AUTO) 70.7 % (43.0-81.0); PLATELET COUNT (AUTO) 256 K/uL (150-450); RED BLOOD CELL COUNT(AUTO) 4.75 MIL/uL (4.5-6.0); WHITE BLOOD COUNT (AUTO) 8.6 K/uL (4.3-11.0)
[2021-11-14] MEDS ORDERED: ACETAMINOPHEN ES 500 MG TABLET PO ONE (17:00)
[2021-11-14] MEDS ORDERED: LORAZEPAM 1 MG TABLET PO ONE (17:00)
[2021-11-14 17:06] LABS: CALCIUM, SERUM 9.6 mg/dL (8.5-10.1); CREATININE 1.4 mg/dL (0.6-1.3); POTASSIUM 3.8 mmol/L (3.5-5.1)
[2021-11-14] MEDS ORDERED: IV NS 0.9% 500 ML BAG IV ONE (17:30)
--- NOTE | 2021-11-14 18:59 | NUR ---
IV removed. Catheter intact and site benign. Pressure and 4x4 applied to site. No bleeding noted.
[2021-11-14] MEDS ORDERED: BUTA1CAP46 PO (19:23)
--- NOTE | 2021-11-14 19:23 | NUR ---
Patient discharged to home in stable condition. Written and verbal after care instructions given. Patient verbalizes understanding of instruction.
[2021-11-14 19:25] VITALS: BP 122/80
== END 2021-11-14 19:26 | disposition home or self-care (01) ==
LOC: ER 16:09
DX: G43.909 Migraine, unspecified, not intractable, without status migrainosus (principal); R25.1 Tremor, unspecified; R00.0 Tachycardia, unspecified; F25.9 Schizoaffective disorder, unspecified; F41.9 Anxiety disorder, unspecified; G47.00 Insomnia, unspecified; F17.200 Nicotine dependence, unspecified, uncomplicated; Z60.2 Problems related to living alone; Z79.899 Other long term (current) drug therapy
CPT/HCPCS: 36415; 80048; 84484; 85025; 93005 ×2; 96360; 99285; J7030

== ENCOUNTER 2021-11-28 13:27 | Emergency (ER) | payer MEDICAID ==
[~2021-11-28] VITALS: Ht 185.4 cm; Wt 86.2 kg
[~2021-11-28 13:27] MED LIST changes: +BUTA1CAP46 PO
--- NOTE | 2021-11-28 14:40 | NUR ---
Dr Finch in room for eval
--- NOTE | 2021-11-28 14:45 | NUR ---
PT SEEN AND EXAMINED BY .
[2021-11-28] MEDS ORDERED: BUTALB/APAP/CAFFEINE 1 EACH TABLET PO PRN (15:00)
[2021-11-28] MEDS ORDERED: HYDROCODONE/APAP 5/325MG TABLET PO ONE (15:00)
[2021-11-28] MEDS ORDERED: HYDROCODONE/APAP 5/325MG TABLET ONE (15:00)
[2021-11-28] MEDS ORDERED: BUTA1CAP46 PO (15:15)
--- NOTE | 2021-11-28 15:26 | NUR ---
Patient given written and verbal discharge instructions. Patient verbalizes understanding of instructions. Patient is ambulatory with steady gait. Refuses offer of fdc placement. Patient given list of available shelters in surrounding area. In proper clothing. Name band removed. All belongings with the patient.
[2021-11-28 15:29] VITALS: BP 145/81
== END 2021-11-28 15:30 | disposition home or self-care (01) ==
LOC: ER 13:28
DX: R51.9 Headache, unspecified (principal); G40.909 Epilepsy, unspecified, not intractable, without status epilepticus; F41.9 Anxiety disorder, unspecified; G47.00 Insomnia, unspecified; F25.9 Schizoaffective disorder, unspecified; F17.200 Nicotine dependence, unspecified, uncomplicated; Z60.2 Problems related to living alone; Z79.899 Other long term (current) drug therapy

== ENCOUNTER 2021-12-02 18:42 | Emergency (ER) | payer MEDICAID ==
[~2021-12-02] VITALS: Ht 185.4 cm; Wt 86.2 kg
--- NOTE | 2021-12-02 20:17 | NUR ---
CALLED FOR TRIAGE NOT IN WAITING ROOM.
--- NOTE | 2021-12-02 20:25 | NUR ---
BIBS C/O HAVING S/I WITH PLAN TO OD ON PILLS. SEEKING VOLUNTARY ADMISSION TO [facility]. ALSO C/O MIGRAINES. PATIENT ALERT AND ORIENTED X3. AMBULATORY WITH NON LABORED BREATHING BELONGINGS TAKEN AND PUT IN A LOCKER.
--- NOTE | 2021-12-02 20:35 | NUR ---
URINE AND BLOOD COLLECTED AND SENT TO LAB
[2021-12-02 20:40] LABS: BASOPHILS % (AUTO) 0.6 % (0.0-2.0); EOSINOPHILS % (AUTO) 2.7 % (0.0-6.0); HEMATOCRIT 41 % (39-51); HEMOGLOBIN 13.7 g/dL (13.5-17.5); LYMPHOCYTES # (AUTO) 2.4 K/uL (0.8-4.8); LYMPHOCYTES % (AUTO) 36.7 % (20.0-44.0); MEAN CORPUSCULAR HGB CONC 33 g/dl (31.0-36.0); MEAN CORPUSCULAR VOLUME 92 fL (80-96); MONOCYTES # (AUTO) 0.5 K/uL (0.1-1.30); MONOCYTES % (AUTO) 7.6 % (2.0-12.0); NEUTROPHILS # (AUTO) 3.4 K/uL (1.8-8.9); NEUTROPHILS % (AUTO) 52.4 % (43.0-81.0); PLATELET COUNT (AUTO) 222 K/uL (150-450); RED BLOOD CELL COUNT(AUTO) 4.46 MIL/uL (4.5-6.0); WHITE BLOOD COUNT (AUTO) 6.5 K/uL (4.3-11.0)
[2021-12-02 20:45] LABS: BILIRUBIN,URINE NEGATIVE (NEGATIVE); COLOR,URINE YELLOW (YELLOW); LEUKOCYTE ESTERASE ,URINE NEGATIVE (NEGATIVE); NITRITE, URINE NEGATIVE (NEGATIVE); PH,URINE 6.5 (5.0-8.0); PROTEIN,URINE NEGATIVE (NEGATIVE); UGLUCOSE NEGATIVE (NEGATIVE); UROBILINOGEN,URINE 0.2 EU/dL (0.2)
[2021-12-02 20:49] LABS: BACTERIA,URINE Few /HPF (None Seen); SQUAMOUS EPITHELIAL CELL,UR Few /HPF (None Seen); WBC,URINE 0-2 /HPF (0-3)
[2021-12-02 20:55] LABS: ALANINE AMINOTRANSFERASE 23 U/L (12-78); ALCOHOL, BLOOD < 3 mg/dL (0-0); ALKALINE PHOSPHATASE 83 U/L (46-116); ASPARTATE AMINOTRANSFERASE 13 U/L (15-37); BILIRUBIN,DIRECT 0.1 mg/dL (0.0-0.2); BILIRUBIN,TOTAL 0.2 mg/dL (0.2-1.0); CALCIUM, SERUM 8.6 mg/dL (8.5-10.1); CARBON DIOXIDE 25 mmol/L (21-32); CHLORIDE 102 mmol/L (98-107); CREATININE 1.1 mg/dL (0.6-1.3); GLUCOSE 118 mg/dL (74-106); POTASSIUM 3.8 mmol/L (3.5-5.1); SODIUM SERUM 136 mmol/L (136-145); TOTAL PROTEIN, SERUM 7.3 g/dL (6.4-8.2); UREA NITROGEN, BLOOD 15 mg/dL (7-18)
[2021-12-02 20:56] LABS: ACETAMINOPHEN < 1 ug/ml (10-30)
[2021-12-02] MEDS ORDERED: ACETAMINOPHEN ES 500 MG TABLET ONE (21:35)
[2021-12-02] MEDS ORDERED: ACETAMINOPHEN ES 500 MG TABLET PO ONE (22:00)
--- NOTE | 2021-12-03 01:24 | NUR ---
CLINICALS FAXED TO [facility]
--- NOTE | 2021-12-03 03:10 | NUR ---
S/W ART FROM [facility] [phone] ACCEPTED , DR HOLMAN GIVE REPORT [phone]
[2021-12-03 03:15] VITALS: BP 112/78
--- NOTE | 2021-12-03 03:17 | NUR ---
REPORT GIVEN TO SHIRLEY
--- NOTE | 2021-12-03 03:21 | NUR ---
[facility] ETA 10-15 MIN
--- NOTE | 2021-12-03 03:36 | NUR ---
REPORT GIVEN TO EMS
--- NOTE | 2021-12-03 03:40 | NUR ---
patient left via ambulance in stable condition.
== END 2021-12-03 03:30 ==
LOC: ER 18:43
DX: R45.851 Suicidal ideations (principal); Z20.822 Contact with and (suspected) exposure to COVID-19; F25.9 Schizoaffective disorder, unspecified; G47.00 Insomnia, unspecified; F41.9 Anxiety disorder, unspecified; K51.90 Ulcerative colitis, unspecified, without complications; Z79.899 Other long term (current) drug therapy; Z86.69 Personal history of other diseases of the nervous system and sense organs; Z59.00 Homelessness unspecified
CPT/HCPCS: 36415; 80048; 80076; 80143; 80307; 80320; 81001; 85025; 87426; 99285; C9803; G0480

== ENCOUNTER 2022-01-16 19:15 | Emergency (ER) | payer MEDICAID ==
[~2022-01-16] VITALS: Ht 182.9 cm; Wt 86.2 kg
[~2022-01-16 19:15] MED LIST changes: -OMEP20CA15 PO
--- NOTE | 2022-01-16 20:20 | NUR ---
TO ER BED 19. BIBS FOR S/I WITH PLAN TO OD. ALSO C/O L ANKLE PAIN. PT CHANGED INTO GOWN. BELONGINGS OBTAINED AND SECURED. 1:1 SITTER. V/S WITHIN LIMITS. WILL CONTINUE TO MONITOR.
--- NOTE | 2022-01-16 20:45 | NUR ---
PROVIDED PT WITH SOCKS AND WARM BLANKET. WILL CONTINUE TO MONITOR
[2022-01-16 20:59] LABS: BASOPHILS % (AUTO) 0.4 % (0.0-2.0); EOSINOPHILS % (AUTO) 3.3 % (0.0-6.0); HEMATOCRIT 37 % (39-51); HEMOGLOBIN 12.7 g/dL (13.5-17.5); LYMPHOCYTES # (AUTO) 2.3 K/uL (0.8-4.8); LYMPHOCYTES % (AUTO) 34.4 % (20.0-44.0); MEAN CORPUSCULAR HGB CONC 34 g/dl (31.0-36.0); MEAN CORPUSCULAR VOLUME 91 fL (80-96); MONOCYTES # (AUTO) 0.5 K/uL (0.1-1.30); MONOCYTES % (AUTO) 7.6 % (2.0-12.0); NEUTROPHILS # (AUTO) 3.7 K/uL (1.8-8.9); NEUTROPHILS % (AUTO) 54.3 % (43.0-81.0); PLATELET COUNT (AUTO) 213 K/uL (150-450); RED BLOOD CELL COUNT(AUTO) 4.05 MIL/uL (4.5-6.0); WHITE BLOOD COUNT (AUTO) 6.7 K/uL (4.3-11.0)
[2022-01-16 21:06] LABS: CALCIUM, SERUM 8.7 mg/dL (8.5-10.1); CARBON DIOXIDE 26 mmol/L (21-32); CHLORIDE 107 mmol/L (98-107); CREATININE 1.4 mg/dL (0.6-1.3); GLUCOSE 96 mg/dL (74-106); POTASSIUM 3.8 mmol/L (3.5-5.1); SODIUM SERUM 140 mmol/L (136-145); UREA NITROGEN, BLOOD 14 mg/dL (7-18)
[2022-01-16] MEDS ORDERED: ACETAMINOPHEN 325 MG TABLET ONE (21:07)
[2022-01-16 21:10] LABS: ALANINE AMINOTRANSFERASE 21 U/L (12-78); ALBUMIN 3.6 g/dL (3.4-5.0); ALCOHOL, BLOOD < 3 mg/dL (0-0); ALKALINE PHOSPHATASE 107 U/L (46-116); ASPARTATE AMINOTRANSFERASE 13 U/L (15-37); BILIRUBIN,TOTAL 0.1 mg/dL (0.2-1.0); TOTAL PROTEIN, SERUM 6.7 g/dL (6.4-8.2)
[2022-01-16 21:11] LABS: ACETAMINOPHEN < 0 ug/ml (10-30)
[2022-01-16 21:22] LABS: BILIRUBIN,URINE NEGATIVE (NEGATIVE); COLOR,URINE YELLOW (YELLOW); LEUKOCYTE ESTERASE ,URINE NEGATIVE (NEGATIVE); NITRITE, URINE NEGATIVE (NEGATIVE); PH,URINE 5.5 (5.0-8.0); PROTEIN,URINE NEGATIVE (NEGATIVE); UGLUCOSE NEGATIVE (NEGATIVE); UROBILINOGEN,URINE 0.2 EU/dL (0.2)
[2022-01-16] MEDS ORDERED: ACETAMINOPHEN 325 MG TABLET PO ONE (21:30)
--- NOTE | 2022-01-16 22:43 | NUR ---
PT IS ASLEEP, CONNECTED TO MONITOR. WILL CONTINUE TO MONITOR.
--- NOTE | 2022-01-17 02:12 | NUR ---
Pt accepted at [facility] under the care of Dr. Sun. Room will be given upon arrival. Report to [phone]
--- NOTE | 2022-01-17 02:13 | NUR ---
[facility] eta 60-90 min.
--- NOTE | 2022-01-17 02:14 | NUR ---
report given to ANSON Al[place] planting supervisor
--- NOTE | 2022-01-17 03:15 | NUR ---
[facility] AT BEDSIDE FOR PT TRANSPORT TO [facility] IN STABLE CONDITION. NAD NOTED DURING TRANSPORT.
[2022-01-17 03:57] VITALS: BP 122/81
== END 2022-01-17 03:57 ==
LOC: ER 19:23
DX: F32.A Depression, unspecified (principal); Z59.00 Homelessness unspecified; Z20.822 Contact with and (suspected) exposure to COVID-19; F25.9 Schizoaffective disorder, unspecified; F41.9 Anxiety disorder, unspecified; K51.90 Ulcerative colitis, unspecified, without complications; G47.00 Insomnia, unspecified; M19.90 Unspecified osteoarthritis, unspecified site; Z79.899 Other long term (current) drug therapy
CPT/HCPCS: 36415; 80048; 80076; 80143; 80307; 80320; 81003; 85025; 87426; 99284; C9803; G0480

== ENCOUNTER 2022-02-11 17:58 | Emergency (ER) | payer MEDICAID ==
[~2022-02-11] VITALS: Ht 182.9 cm; Wt 88.5 kg
--- NOTE | 2022-02-11 17:58 | NUR ---
PT BIB SELF C/O "I WANT TO HURT SOMEONE" REQUESTING VOLUNTARY PSYCH ADMISSION. PT IS AAOX4, NOT IN RESPIRATORY DISTRESS, V/S STABLE, KEPT RESTED AND COMFORTABLE. WILL CONTINUE TO MONITOR.
--- NOTE | 2022-02-11 18:25 | NUR ---
URINE AND COVID SPECIMEN OBTAINED AND SENT TO LAB.
--- NOTE | 2022-02-11 18:36 | NUR ---
ER PHLEB AT BEDSIDE FOR BLOOD DRAW.
[2022-02-11 18:53] LABS: BILIRUBIN,URINE SMALL (NEGATIVE); COLOR,URINE YELLOW (YELLOW); LEUKOCYTE ESTERASE ,URINE NEGATIVE (NEGATIVE); NITRITE, URINE NEGATIVE (NEGATIVE); PROTEIN,URINE NEGATIVE (NEGATIVE); UGLUCOSE NEGATIVE (NEGATIVE)
[2022-02-11 19:01] LABS: BACTERIA,URINE None seen /HPF (None Seen); CALCIUM OXALATE CRYSTALS,UR Moderate /HPF (None Seen); RBC,URINE 0-2 /HPF (0-2); SQUAMOUS EPITHELIAL CELL,UR 0-2 /HPF (None Seen); WBC,URINE 0-2 /HPF (0-3)
[2022-02-11 19:04] LABS: URIC ACID CRYSTALS,URINE Few /HPF (None Seen)
[2022-02-11 19:05] LABS: CALCIUM, SERUM 9.2 mg/dL (8.5-10.1); CARBON DIOXIDE 25 mmol/L (21-32); CHLORIDE 107 mmol/L (98-107); CREATININE 1.1 mg/dL (0.6-1.3); GLUCOSE 151 mg/dL (74-106); POTASSIUM 3.6 mmol/L (3.5-5.1); SODIUM SERUM 141 mmol/L (136-145); UREA NITROGEN, BLOOD 20 mg/dL (7-18)
[2022-02-11 19:10] LABS: ALANINE AMINOTRANSFERASE 18 U/L (12-78); ALKALINE PHOSPHATASE 78 U/L (46-116); ASPARTATE AMINOTRANSFERASE 15 U/L (15-37); BILIRUBIN,DIRECT 0.1 mg/dL (0.0-0.2); BILIRUBIN,TOTAL 0.4 mg/dL (0.2-1.0); TOTAL PROTEIN, SERUM 7.2 g/dL (6.4-8.2)
[2022-02-11 19:11] LABS: ALCOHOL, BLOOD < 3 mg/dL (0-0)
[2022-02-11 20:16] LABS: BASOPHILS % (AUTO) 0.3 % (0.0-2.0); HEMATOCRIT 41 % (39-51); HEMOGLOBIN 14.1 g/dL (13.5-17.5); LYMPHOCYTES % (AUTO) 22.6 % (20.0-44.0); MEAN CORPUSCULAR HGB CONC 34 g/dl (31.0-36.0); MEAN CORPUSCULAR VOLUME 93 fL (80-96); MONOCYTES # (AUTO) 0.8 K/uL (0.1-1.30); MONOCYTES % (AUTO) 9.2 % (2.0-12.0); NEUTROPHILS # (AUTO) 5.9 K/uL (1.8-8.9); NEUTROPHILS % (AUTO) 66.9 % (43.0-81.0); PLATELET COUNT (AUTO) 278 K/uL (150-450); RED BLOOD CELL COUNT(AUTO) 4.47 MIL/uL (4.5-6.0); WHITE BLOOD COUNT (AUTO) 8.8 K/uL (4.3-11.0)
--- NOTE | 2022-02-12 04:47 | NUR ---
PAGED ART FOR PSYCH EVAL
--- NOTE | 2022-02-12 05:42 | NUR ---
cilincals faxed to [facility]
--- NOTE | 2022-02-12 06:14 | NUR ---
Hany dunn in [facility] - 02/12/22 at 0615 by SALAS cilincals faxed to [facility]
[2022-02-12 08:00] VITALS: BP 120/79
--- NOTE | 2022-02-12 08:09 | NUR ---
TRANSPORT ETA 0900.
--- NOTE | 2022-02-12 09:30 | NUR ---
PICKED UP BY [facility] IN STABLE CONDITION
== END 2022-02-12 09:52 ==
LOC: ER 17:59
DX: R45.850 Homicidal ideations (principal); F25.9 Schizoaffective disorder, unspecified; F17.200 Nicotine dependence, unspecified, uncomplicated; K51.90 Ulcerative colitis, unspecified, without complications; F41.9 Anxiety disorder, unspecified; Z79.899 Other long term (current) drug therapy; G40.909 Epilepsy, unspecified, not intractable, without status epilepticus; F19.90 Other psychoactive substance use, unspecified, uncomplicated; Z20.822 Contact with and (suspected) exposure to COVID-19
CPT/HCPCS: 36415; 80048; 80076; 80143; 80307; 80320; 81001; 85025; 87426; 99284; C9803; G0480

== ENCOUNTER 2022-02-27 09:28 | Emergency (ER) | payer MEDICAID ==
[~2022-02-27] VITALS: Ht 182.9 cm; Wt 88.5 kg
--- NOTE | 2022-02-27 09:46 | NUR ---
BIBS FOR SI WITH NO PLAN. -HI, - AUDITORY HALLUCINATIONS, + VISUAL HALLUCINATIONS " I SEE BLACK AND YELLOW SPOTS WHEN HAVING INSOMNIA" THE PATIENT WANTS VOL ADMISSION TO [facility]
--- NOTE | 2022-02-27 09:46 | NUR ---
Note cristoone in EDM - 02/27/22 at 0948 by EMMY BIBS FOR SI WITH NO PLAN. -HI, - AUDITORY HALLUCINATIONS, + VISUAL BIBS FOR SI WITH NO PLAN. -HI, - AUDITORY HALLUCINATIONS, + VISUAL THE PATIENT WANT VOL ADMISSION TO [facility]. THE PATIENT IS ALERT AND ORIENTED X4. IN ROOM AIR AND DENIES SOB. RESPIRATION REGULAR AND UNLABORED. WILL CONTINUE TO MONITOR THE PATIENT.
--- NOTE | 2022-02-27 09:47 | NUR ---
SECURITY IS CALLED AND WANDING DONE.
[2022-02-27] MEDS ORDERED: LORAZEPAM 1 MG TABLET ONE (10:08)
[2022-02-27] MEDS ORDERED: IBUPROFEN 600 MG TABLET ONE (10:11)
[2022-02-27] MEDS: LORAZEPAM 1 MG TABLET PO ONE (10:12)
[2022-02-27] MEDS: IBUPROFEN 600 MG TABLET PO ONE (10:13)
[2022-02-27 10:32] LABS: BASOPHILS # (AUTO) 0.1 K/uL (0.0-0.2); BASOPHILS % (AUTO) 0.7 % (0.0-2.0); EOSINOPHILS % (AUTO) 0.4 % (0.0-6.0); HEMATOCRIT 40 % (39-51); HEMOGLOBIN 14.1 g/dL (13.5-17.5); LYMPHOCYTES # (AUTO) 1.9 K/uL (0.8-4.8); LYMPHOCYTES % (AUTO) 22.4 % (20.0-44.0); MEAN CORPUSCULAR HGB CONC 35 g/dl (31.0-36.0); MEAN CORPUSCULAR VOLUME 90 fL (80-96); MONOCYTES # (AUTO) 0.7 K/uL (0.1-1.30); MONOCYTES % (AUTO) 7.9 % (2.0-12.0); NEUTROPHILS # (AUTO) 5.7 K/uL (1.8-8.9); NEUTROPHILS % (AUTO) 68.6 % (43.0-81.0); PLATELET COUNT (AUTO) 217 K/uL (150-450); RED BLOOD CELL COUNT(AUTO) 4.47 MIL/uL (4.5-6.0); WHITE BLOOD COUNT (AUTO) 8.3 K/uL (4.3-11.0)
[2022-02-27 10:35] LABS: BILIRUBIN,URINE NEGATIVE (NEGATIVE); COLOR,URINE YELLOW (YELLOW); LEUKOCYTE ESTERASE ,URINE NEGATIVE (NEGATIVE); NITRITE, URINE NEGATIVE (NEGATIVE); PH,URINE 8.5 (5.0-8.0); PROTEIN,URINE NEGATIVE (NEGATIVE); UGLUCOSE NEGATIVE (NEGATIVE); UROBILINOGEN,URINE 0.2 EU/dL (0.2)
[2022-02-27 11:20] LABS: ALANINE AMINOTRANSFERASE 25 U/L (12-78); ALBUMIN 4.3 g/dL (3.4-5.0); ALCOHOL, BLOOD < 3 mg/dL (0-0); ALKALINE PHOSPHATASE 74 U/L (46-116); ASPARTATE AMINOTRANSFERASE 18 U/L (15-37); BILIRUBIN,DIRECT 0.1 mg/dL (0.0-0.2); BILIRUBIN,TOTAL 0.5 mg/dL (0.2-1.0); CALCIUM, SERUM 9.2 mg/dL (8.5-10.1); CARBON DIOXIDE 29 mmol/L (21-32); CHLORIDE 104 mmol/L (98-107); CREATININE 1.1 mg/dL (0.6-1.3); GLUCOSE 103 mg/dL (74-106); POTASSIUM 3.6 mmol/L (3.5-5.1); SODIUM SERUM 140 mmol/L (136-145); TOTAL PROTEIN, SERUM 7.5 g/dL (6.4-8.2); UREA NITROGEN, BLOOD 14 mg/dL (7-18)
[2022-02-27 11:21] LABS: ACETAMINOPHEN < 10 ug/ml (10-30)
--- NOTE | 2022-02-27 12:04 | NUR ---
LUNCH SERVED. THE PATIENT FREDDY FOOD WELL.
--- NOTE | 2022-02-27 13:16 | NUR ---
FAXED CLINICALS TO [facility].
--- NOTE | 2022-02-27 13:59 | NUR ---
THE PATIENT IS ACCEPTED TO [facility] UNDER DR TEE
--- NOTE | 2022-02-27 14:34 | NUR ---
Hany lemonsaugustine in ED - 02/27/22 at 1438 by EMMY BIBS FOR C/O MOUTH PAIN 06/21. THE PATIENT HAD ROOT CANAL DONE YESTERDAY
--- NOTE | 2022-02-27 14:39 | NUR ---
REPORT GIVEN TO NURSE DEVIN FROM [facility].
[2022-02-27 15:45] VITALS: BP 108/76
--- NOTE | 2022-02-27 16:10 | NUR ---
PICKED UP BY TRANSPORT IN STABLE CONDITION
== END 2022-02-27 16:10 ==
LOC: ER 09:30
DX: F25.9 Schizoaffective disorder, unspecified (principal); R51.9 Headache, unspecified; R45.851 Suicidal ideations; Z20.822 Contact with and (suspected) exposure to COVID-19; F14.10 Cocaine abuse, uncomplicated; G47.00 Insomnia, unspecified; F41.9 Anxiety disorder, unspecified; K51.90 Ulcerative colitis, unspecified, without complications; Z79.899 Other long term (current) drug therapy; R56.9 Unspecified convulsions; F17.200 Nicotine dependence, unspecified, uncomplicated
CPT/HCPCS: 36415; 80048; 80076; 80143; 80307; 80320; 81003; 85025; 87426; 99285; C9803; G0480

== ENCOUNTER 2022-03-07 15:20 | Emergency (ER) | payer MEDICAID ==
[~2022-03-07] VITALS: Ht 182.9 cm; Wt 88.5 kg
[2022-03-07 16:21] VITALS: BP 128/77
--- NOTE | 2022-03-07 16:23 | NUR ---
Patient caMe in to the er c/o denies SI/HI " i can't sleep, having hallucination" " i want vouluntary admission to [facility]". On room air, breathing evenly and unlabored. Kept comfortable, will continue to monitor accordingly.
[2022-03-07 16:45] LABS: BASOPHILS % (AUTO) 0.1 % (0.0-2.0); EOSINOPHILS % (AUTO) 1.7 % (0.0-6.0); HEMATOCRIT 39 % (39-51); HEMOGLOBIN 13.4 g/dL (13.5-17.5); LYMPHOCYTES % (AUTO) 27.4 % (20.0-44.0); MEAN CORPUSCULAR HGB CONC 34 g/dl (31.0-36.0); MEAN CORPUSCULAR VOLUME 92 fL (80-96); MONOCYTES # (AUTO) 0.5 K/uL (0.1-1.30); MONOCYTES % (AUTO) 7.2 % (2.0-12.0); NEUTROPHILS # (AUTO) 4.7 K/uL (1.8-8.9); NEUTROPHILS % (AUTO) 63.6 % (43.0-81.0); PLATELET COUNT (AUTO) 185 K/uL (150-450); RED BLOOD CELL COUNT(AUTO) 4.26 MIL/uL (4.5-6.0); WHITE BLOOD COUNT (AUTO) 7.3 K/uL (4.3-11.0)
[2022-03-07 17:20] LABS: ALANINE AMINOTRANSFERASE 19 U/L (12-78); ALBUMIN 3.9 g/dL (3.4-5.0); ALCOHOL, BLOOD < 3 mg/dL (0-0); ALKALINE PHOSPHATASE 72 U/L (46-116); ASPARTATE AMINOTRANSFERASE 20 U/L (15-37); BILIRUBIN,DIRECT 0.1 mg/dL (0.0-0.2); BILIRUBIN,TOTAL 0.2 mg/dL (0.2-1.0); CALCIUM, SERUM 8.9 mg/dL (8.5-10.1); CARBON DIOXIDE 26 mmol/L (21-32); CHLORIDE 107 mmol/L (98-107); CREATININE 1.1 mg/dL (0.6-1.3); GLUCOSE 125 mg/dL (74-106); POTASSIUM 3.6 mmol/L (3.5-5.1); SODIUM SERUM 142 mmol/L (136-145); UREA NITROGEN, BLOOD 20 mg/dL (7-18)
[2022-03-07 17:26] LABS: ACETAMINOPHEN < 10 ug/ml (10-30)
[2022-03-07] MEDS ORDERED: LORAZEPAM 1 MG TABLET ONE (17:58)
[2022-03-07] MEDS ORDERED: LORAZEPAM 1 MG TABLET PO ONE (18:00)
[2022-03-07 20:07] LABS: BILIRUBIN,URINE NEGATIVE (NEGATIVE); COLOR,URINE YELLOW (YELLOW); LEUKOCYTE ESTERASE ,URINE NEGATIVE (NEGATIVE); NITRITE, URINE NEGATIVE (NEGATIVE); PH,URINE 7.5 (5.0-8.0); PROTEIN,URINE NEGATIVE (NEGATIVE); UGLUCOSE NEGATIVE (NEGATIVE); UROBILINOGEN,URINE 0.2 EU/dL (0.2)
[2022-03-07 20:11] LABS: BACTERIA,URINE None seen /HPF (None Seen); RBC,URINE 0-2 /HPF (0-2); SQUAMOUS EPITHELIAL CELL,UR 0-2 /HPF (None Seen); WBC,URINE 0-2 /HPF (0-3)
[2022-03-07 20:12] LABS: URINE AMORPHOUS PHOSPHATES Moderate /HPF (None Seen)
--- NOTE | 2022-03-07 22:46 | NUR ---
FACESHEET AND CLINICALS FAXED TO [facility].
--- NOTE | 2022-03-08 01:58 | NUR ---
PER JANUARY AT [facility] PATIENT GOT ACCPETED AT [facility] UNDER THE CARE OF DR FATIMA
--- NOTE | 2022-03-08 02:11 | NUR ---
[facility] ETA: [phone]
--- NOTE | 2022-03-08 04:13 | NUR ---
REPORT GIVEN TO JILLIAN AT [facility]
--- NOTE | 2022-03-08 04:50 | NUR ---
[facility] AT BEDSIDE FOR TRANSPORT TO [facility],
--- NOTE | 2022-03-08 05:41 | NUR ---
Patient discharged to home in stable condition. Written and verbal after care instructions given. Patient verbalizes understanding of instruction.
== END 2022-03-08 05:42 ==
LOC: ER 15:23
DX: F29 Unspecified psychosis not due to a substance or known physiological condition (principal); G47.00 Insomnia, unspecified; Z20.822 Contact with and (suspected) exposure to COVID-19; F25.9 Schizoaffective disorder, unspecified; F41.9 Anxiety disorder, unspecified; F17.200 Nicotine dependence, unspecified, uncomplicated; Z79.899 Other long term (current) drug therapy; Z59.00 Homelessness unspecified
CPT/HCPCS: 36415; 80048; 80076; 80143; 80307; 80320; 81001; 85025; 87426; 99284; C9803; G0480

== ENCOUNTER 2022-04-14 22:07 | Emergency (ER) | payer MEDICAID ==
[~2022-04-14] VITALS: Ht 170.2 cm; Wt 68.9 kg
[2022-04-14 23:51] VITALS: BP 123/81
--- NOTE | 2022-04-15 00:12 | NUR ---
Patient discharged to home in stable condition. Written and verbal after care instructions given. Patient verbalizes understanding of instruction. Pt ambulatory with a steady gait
== END 2022-04-15 00:14 | disposition home or self-care (01) ==
LOC: ER 22:36
DX: S05.12XA Contusion of eyeball and orbital tissues, left eye, initial encounter (principal); S05.11XA Contusion of eyeball and orbital tissues, right eye, initial encounter; R51.9 Headache, unspecified; F41.9 Anxiety disorder, unspecified; G47.00 Insomnia, unspecified; F32.A Depression, unspecified; F25.9 Schizoaffective disorder, unspecified; F17.200 Nicotine dependence, unspecified, uncomplicated; Z60.2 Problems related to living alone; Z79.899 Other long term (current) drug therapy; Y08.89XA Assault by other specified means, initial encounter; Y93.89 Activity, other specified; Y92.89 Other specified places as the place of occurrence of the external cause; Y99.8 Other external cause status

== ENCOUNTER 2022-04-30 19:20 | Emergency (ER) | payer MEDICAID ==
[~2022-04-30] VITALS: Ht 182.9 cm; Wt 88.5 kg
[2022-04-30 20:26] VITALS: BP 110/71
--- NOTE | 2022-04-30 20:26 | NUR ---
VALDEMAR C/O SI PLAN TO "SHOOT GUN TO BRAIN" REQUESTING VOLUNTARY ADMIT TO [facility]. PT A/OX4. TOELRATING R/A WELL WITH NO SOB. AMBULATORY WITH STEADY GAIT. PT CHANGED IN GOWN, BELONGINGS COLLECTED, WANDED BY SECURITY. SAFETY MEASURES IN PLACE.
--- NOTE | 2022-04-30 20:33 | NUR ---
COVID ANTIGEN AND URINE COLLECTED AND SENT TO LAB
[2022-04-30 20:42] LABS: BASOPHILS % (AUTO) 0.5 % (0.0-2.0); HEMATOCRIT 42 % (39-51); HEMOGLOBIN 13.8 g/dL (13.5-17.5); LYMPHOCYTES # (AUTO) 2.4 K/uL (0.8-4.8); LYMPHOCYTES % (AUTO) 32.9 % (20.0-44.0); MEAN CORPUSCULAR HGB CONC 33 g/dl (31.0-36.0); MEAN CORPUSCULAR VOLUME 94 fL (80-96); MONOCYTES # (AUTO) 0.5 K/uL (0.1-1.30); MONOCYTES % (AUTO) 7.5 % (2.0-12.0); NEUTROPHILS # (AUTO) 4.2 K/uL (1.8-8.9); NEUTROPHILS % (AUTO) 57.1 % (43.0-81.0); PLATELET COUNT (AUTO) 317 K/uL (150-450); RED BLOOD CELL COUNT(AUTO) 4.44 MIL/uL (4.5-6.0); WHITE BLOOD COUNT (AUTO) 7.3 K/uL (4.3-11.0)
[2022-04-30] MEDS ORDERED: HYDROCODONE/APAP 5/325MG TABLET PO ONE (21:00)
[2022-04-30] MEDS ORDERED: HYDROCODONE/APAP 5/325MG TABLET ONE (21:15)
[2022-04-30 21:42] LABS: BILIRUBIN,URINE NEGATIVE (NEGATIVE); COLOR,URINE YELLOW (YELLOW); LEUKOCYTE ESTERASE ,URINE NEGATIVE (NEGATIVE); NITRITE, URINE NEGATIVE (NEGATIVE); PH,URINE 6.5 (5.0-8.0); PROTEIN,URINE NEGATIVE (NEGATIVE); UGLUCOSE NEGATIVE (NEGATIVE); UROBILINOGEN,URINE 0.2 EU/dL (0.2)
[2022-04-30 22:38] LABS: ALANINE AMINOTRANSFERASE 30 U/L (12-78); ALCOHOL, BLOOD < 3 mg/dL (0-0); ALKALINE PHOSPHATASE 104 U/L (46-116); BILIRUBIN,DIRECT 0.1 mg/dL (0.0-0.2); BILIRUBIN,TOTAL 0.3 mg/dL (0.2-1.0); CARBON DIOXIDE 27 mmol/L (21-32); CHLORIDE 101 mmol/L (98-107); GLUCOSE 87 mg/dL (74-106); POTASSIUM 3.4 mmol/L (3.5-5.1); SODIUM SERUM 136 mmol/L (136-145); TOTAL PROTEIN, SERUM 7.6 g/dL (6.4-8.2); UREA NITROGEN, BLOOD 16 mg/dL (7-18)
[2022-04-30 22:53] LABS: ASPARTATE AMINOTRANSFERASE 19 U/L (15-37)
[2022-04-30 22:54] LABS: ACETAMINOPHEN 0 ug/ml (10-30)
--- NOTE | 2022-04-30 23:25 | NUR ---
FACESHEET AND CLINICALS FAXED TO [facility].
[2022-04-30] MEDS ORDERED: POTASSIUM CHLORIDE 20 MEQ TAB.PRT.SR PO ONE ×2 (23:30→23:34)
--- NOTE | 2022-05-01 03:30 | NUR ---
PT ACCEPTED TO [facility] BY DR GIBBONS. # FOR REPORT [phone].
--- NOTE | 2022-05-01 03:34 | NUR ---
[facility] CALLED FOR BLS TO [facility] PER DAVID ETA - 2 HOURS
--- NOTE | 2022-05-01 05:45 | NUR ---
REPORT GIVEN TO ANSON HAMMER
--- NOTE | 2022-05-01 07:27 | NUR ---
[facility] at bedside for transport6 to [facility].
== END 2022-05-01 07:29 ==
LOC: ER 19:23
DX: R45.851 Suicidal ideations (principal); Z59.00 Homelessness unspecified; E87.6 Hypokalemia; F19.10 Other psychoactive substance abuse, uncomplicated; F25.9 Schizoaffective disorder, unspecified; K51.90 Ulcerative colitis, unspecified, without complications; Z20.822 Contact with and (suspected) exposure to COVID-19; G24.01 Drug induced subacute dyskinesia; F41.9 Anxiety disorder, unspecified; Z79.899 Other long term (current) drug therapy; Z72.0 Tobacco use; R51.9 Headache, unspecified
CPT/HCPCS: 99285; 85025; 80048; 80076; 81003; 36415; 87426; 80143; 80320; 80307; C9803; G0480

== ENCOUNTER 2022-05-06 08:59 | Emergency (ER) | payer MEDICAID ==
[~2022-05-06] VITALS: Ht 182.9 cm; Wt 86.2 kg
--- NOTE | 2022-05-06 09:27 | NUR ---
TO ER BED 7, JAKE [facility] WITH PLAN TO SHOOT SELF, JUST RECENTLY LEFT [facility], AAOX4, COOPERATIVE, BREATHING EVEN AND NON LABORED, AWAITING MD ORDERS
[2022-05-06 09:32] VITALS: BP 108/75
--- NOTE | 2022-05-06 09:32 | NUR ---
SECURITY CALLED FOR WANDING
--- NOTE | 2022-05-06 09:35 | NUR ---
COVID SWAB AND URINE SAMPLE COLLECTED.
[2022-05-06 10:44] LABS: BASOPHILS % (AUTO) 0.8 % (0.0-2.0); EOSINOPHILS % (AUTO) 1.9 % (0.0-6.0); HEMATOCRIT 42 % (39-51); HEMOGLOBIN 14.1 g/dL (13.5-17.5); LYMPHOCYTES # (AUTO) 1.4 K/uL (0.8-4.8); LYMPHOCYTES % (AUTO) 27.7 % (20.0-44.0); MEAN CORPUSCULAR HGB CONC 34 g/dl (31.0-36.0); MEAN CORPUSCULAR VOLUME 92 fL (80-96); MONOCYTES # (AUTO) 0.4 K/uL (0.1-1.30); MONOCYTES % (AUTO) 7.8 % (2.0-12.0); NEUTROPHILS # (AUTO) 3.2 K/uL (1.8-8.9); NEUTROPHILS % (AUTO) 61.8 % (43.0-81.0); PLATELET COUNT (AUTO) 267 K/uL (150-450); RED BLOOD CELL COUNT(AUTO) 4.54 MIL/uL (4.5-6.0); WHITE BLOOD COUNT (AUTO) 5.2 K/uL (4.3-11.0)
[2022-05-06 10:55] LABS: BILIRUBIN,URINE NEGATIVE (NEGATIVE); COLOR,URINE YELLOW (YELLOW); LEUKOCYTE ESTERASE ,URINE NEGATIVE (NEGATIVE); NITRITE, URINE NEGATIVE (NEGATIVE); PROTEIN,URINE NEGATIVE (NEGATIVE); UGLUCOSE NEGATIVE (NEGATIVE); UROBILINOGEN,URINE 0.2 EU/dL (0.2)
[2022-05-06 10:58] LABS: ALANINE AMINOTRANSFERASE 28 U/L (12-78); ALCOHOL, BLOOD < 3 mg/dL (0-0); ALKALINE PHOSPHATASE 98 U/L (46-116); ASPARTATE AMINOTRANSFERASE 15 U/L (15-37); BILIRUBIN,DIRECT 0.1 mg/dL (0.0-0.2); BILIRUBIN,TOTAL 0.5 mg/dL (0.2-1.0); CALCIUM, SERUM 9.3 mg/dL (8.5-10.1); CARBON DIOXIDE 29 mmol/L (21-32); CHLORIDE 102 mmol/L (98-107); GLUCOSE 135 mg/dL (74-106); SODIUM SERUM 138 mmol/L (136-145); TOTAL PROTEIN, SERUM 7.7 g/dL (6.4-8.2); UREA NITROGEN, BLOOD 10 mg/dL (7-18)
[2022-05-06 11:04] LABS: ACETAMINOPHEN < 10 ug/ml (10-30)
--- NOTE | 2022-05-06 12:18 | NUR ---
FAXED CLINICALS TO [facility], NOTIFIED [facility],
[2022-05-06] MEDS ORDERED: HYDROCODONE/APAP 5/325MG TABLET PO ONE (15:00)
--- NOTE | 2022-05-06 15:06 | NUR ---
[facility] [phone] TRANSPORT ETA 1 HOUR.
[2022-05-06] MEDS ORDERED: HYDROCODONE/APAP 5/325MG TABLET ONE (15:21)
--- NOTE | 2022-05-06 16:05 | NUR ---
PT REPORT GIVEN TO ANSON GRAMAJO AT [facility].
--- NOTE | 2022-05-06 16:06 | NUR ---
Patient discharged to [facility], picked up by transportation. Written and verbal after care instructions given. Patient verbalizes understanding of instruction.
== END 2022-05-06 16:07 ==
LOC: ER 09:00
DX: R45.851 Suicidal ideations (principal); Z59.00 Homelessness unspecified; F25.9 Schizoaffective disorder, unspecified; F19.10 Other psychoactive substance abuse, uncomplicated; G47.00 Insomnia, unspecified; F41.9 Anxiety disorder, unspecified; Z79.899 Other long term (current) drug therapy; Z20.822 Contact with and (suspected) exposure to COVID-19
CPT/HCPCS: 99285; 85025; 80048; 80076; 81003; 36415; 87426; 80143; 80320; 80307; C9803; G0480

== ENCOUNTER 2022-05-15 18:28 | Emergency (ER) | payer MEDICAID ==
[~2022-05-15] VITALS: Ht 177.8 cm; Wt 72.6 kg
--- NOTE | 2022-05-15 18:52 | NUR ---
URINE COLLECTED AND COVID SWAB DONE AND SENT TO LAB
[2022-05-15] MEDS ORDERED: ACETAMINOPHEN ES 500 MG TABLET ONE (19:26)
[2022-05-15] MEDS: ACETAMINOPHEN ES 500 MG TABLET PO ONE (19:29)
[2022-05-15 19:34] LABS: BILIRUBIN,URINE SMALL (NEGATIVE); COLOR,URINE YELLOW (YELLOW); LEUKOCYTE ESTERASE ,URINE NEGATIVE (NEGATIVE); NITRITE, URINE NEGATIVE (NEGATIVE); PH,URINE 5.5 (5.0-8.0); PROTEIN,URINE NEGATIVE (NEGATIVE); UGLUCOSE NEGATIVE (NEGATIVE); UROBILINOGEN,URINE 0.2 EU/dL (0.2)
[2022-05-15 20:13] LABS: BACTERIA,URINE None seen /HPF (None Seen); RBC,URINE 0-2 /HPF (0-2); WBC,URINE 0-2 /HPF (0-3)
[2022-05-15 20:14] LABS: CALCIUM OXALATE CRYSTALS,UR Many /HPF (None Seen); MUCUS,URINE Moderate /LPF (None Seen); SQUAMOUS EPITHELIAL CELL,UR 0-2 /HPF (None Seen)
[2022-05-15 20:22] LABS: BASOPHILS % (AUTO) 0.3 % (0.0-2.0); EOSINOPHILS % (AUTO) 1.7 % (0.0-6.0); HEMATOCRIT 40 % (39-51); HEMOGLOBIN 13.6 g/dL (13.5-17.5); LYMPHOCYTES % (AUTO) 33.2 % (20.0-44.0); MEAN CORPUSCULAR HGB CONC 34 g/dl (31.0-36.0); MEAN CORPUSCULAR VOLUME 93 fL (80-96); MONOCYTES % (AUTO) 7.7 % (2.0-12.0); NEUTROPHILS % (AUTO) 57.1 % (43.0-81.0); PLATELET COUNT (AUTO) 239 K/uL (150-450); WHITE BLOOD COUNT (AUTO) 7.7 K/uL (4.3-11.0)
[2022-05-15 20:23] LABS: LYMPHOCYTES # (AUTO) 2.6 K/uL (0.8-4.8); MONOCYTES # (AUTO) 0.6 K/uL (0.1-1.30); NEUTROPHILS # (AUTO) 4.4 K/uL (1.8-8.9)
[2022-05-15 20:50] LABS: ALANINE AMINOTRANSFERASE 35 U/L (12-78); ALBUMIN 4.2 g/dL (3.4-5.0); ALKALINE PHOSPHATASE 98 U/L (46-116); ASPARTATE AMINOTRANSFERASE 23 U/L (15-37); BILIRUBIN,DIRECT 0.1 mg/dL (0.0-0.2); BILIRUBIN,TOTAL 0.6 mg/dL (0.2-1.0); CALCIUM, SERUM 9.1 mg/dL (8.5-10.1); CARBON DIOXIDE 26 mmol/L (21-32); CHLORIDE 105 mmol/L (98-107); CREATININE 1.2 mg/dL (0.6-1.3); GLUCOSE 108 mg/dL (74-106); POTASSIUM 3.2 mmol/L (3.5-5.1); SODIUM SERUM 142 mmol/L (136-145); TOTAL PROTEIN, SERUM 7.4 g/dL (6.4-8.2); UREA NITROGEN, BLOOD 21 mg/dL (7-18)
[2022-05-15 20:57] LABS: ACETAMINOPHEN < 10 ug/ml (10-30); ALCOHOL, BLOOD < 3 mg/dL (0-0)
[2022-05-15] MEDS ORDERED: POTASSIUM CHLORIDE 20 MEQ TAB.PRT.SR PO ONE (23:26)
[2022-05-15] MEDS: POTASSIUM CHLORIDE 20 MEQ TAB.PRT.SR PO ONE (23:29)
--- NOTE | 2022-05-15 23:45 | NUR ---
FACESHEET AND CLINICALS FAXED TO [facility].
--- NOTE | 2022-05-16 02:37 | NUR ---
PATIENT ACCEPT TO [facility] UNDER MD NIÑO REPORT [phone] UNIT 2
--- NOTE | 2022-05-16 02:43 | NUR ---
PT WILL BE TRANSPORTED TO [facility] IN 90 MINS TO 2 HOURS VIA [facility].
--- NOTE | 2022-05-16 03:05 | NUR ---
REPORT GIVEN TO TURNER TEIXEIRA RN
--- NOTE | 2022-05-16 05:34 | NUR ---
REPORT GIVEN TO [facility] UNIT 310 FOR PT TO D/C TO [facility] & AT PT'S BEDSIDE.
--- NOTE | 2022-05-16 05:50 | NUR ---
pt picked up by [facility] ambulance for transfer to [facility] in stable condition. all belongings transported with patient
[2022-05-16 05:56] VITALS: BP 119/78
== END 2022-05-16 05:57 ==
LOC: ER 18:30
DX: R45.851 Suicidal ideations (principal); F25.9 Schizoaffective disorder, unspecified; F41.8 Other specified anxiety disorders; R68.84 Jaw pain; S02.609D Fracture of mandible, unspecified, subsequent encounter for fracture with routine healing; Y09 Assault by unspecified means; G43.909 Migraine, unspecified, not intractable, without status migrainosus; F17.290 Nicotine dependence, other tobacco product, uncomplicated; Z79.899 Other long term (current) drug therapy; F41.9 Anxiety disorder, unspecified; G47.00 Insomnia, unspecified; Z20.822 Contact with and (suspected) exposure to COVID-19
CPT/HCPCS: 99285; 85025; 80048; 80076; 81001; 36415; 87426; 80143; 80320; 80307; C9803; G0480

== ENCOUNTER 2022-06-01 17:06 | Emergency (ER) | payer MEDICAID ==
--- NOTE | 2022-06-01 17:20 | NUR ---
called in ed waiting room no response.
--- NOTE | 2022-06-01 17:45 | NUR ---
called in ed waiting room. no response. left before being triage.
== END 2022-06-01 18:35 | disposition left against medical advice (07) ==
LOC: ER 17:07
DX: Z53.21 Procedure and treatment not carried out due to patient leaving prior to being seen by health care provider (principal)
CPT/HCPCS: A4624

== ENCOUNTER 2022-06-01 20:21 | Emergency (ER) | payer MEDICAID ==
--- NOTE | 2022-06-01 21:45 | NUR ---
CALLED TO TRIAGE NO ANSWER
--- NOTE | 2022-06-01 22:05 | NUR ---
CALLED TO TRIAGE NO ANSWER
== END 2022-06-01 22:41 | disposition left against medical advice (07) ==
LOC: ER 20:23
DX: Z53.21 Procedure and treatment not carried out due to patient leaving prior to being seen by health care provider (principal)

== ENCOUNTER 2022-06-02 12:57 | Emergency (ER) | payer MEDICAID ==
[~2022-06-02] VITALS: Ht 182.9 cm; Wt 86.2 kg
--- NOTE | 2022-06-02 13:06 | NUR ---
CAME IN FOR INCREASING ANXIETY/DEPRESSION, REQUESTING VOLUNTARY ADMISSION TO [facility],DENIES SI/HI. TO ER BED 18, HOOKED TO MONITOR, CHANGED TO HOSP GOWN, WANDED BY SECURITY. ALL BELONGINGS PLACED IN PATIENT LOCKER. AWAITING MD FERGUSON
--- NOTE | 2022-06-02 13:10 | NUR ---
DR GRIGGS AT BEDSIDE
[2022-06-02 13:47] LABS: BILIRUBIN,URINE NEGATIVE (NEGATIVE); COLOR,URINE YELLOW (YELLOW); LEUKOCYTE ESTERASE ,URINE NEGATIVE (NEGATIVE); NITRITE, URINE NEGATIVE (NEGATIVE); PROTEIN,URINE NEGATIVE (NEGATIVE); UGLUCOSE NEGATIVE (NEGATIVE); UROBILINOGEN,URINE 0.2 EU/dL (0.2)
[2022-06-02 14:20] LABS: ALANINE AMINOTRANSFERASE 25 U/L (12-78); ALBUMIN 4.5 g/dL (3.4-5.0); ALKALINE PHOSPHATASE 96 U/L (46-116); ASPARTATE AMINOTRANSFERASE 18 U/L (15-37); BILIRUBIN,DIRECT 0.1 mg/dL (0.0-0.2); BILIRUBIN,TOTAL 0.5 mg/dL (0.2-1.0); CALCIUM, SERUM 9.2 mg/dL (8.5-10.1); CARBON DIOXIDE 26 mmol/L (21-32); CHLORIDE 104 mmol/L (98-107); CREATININE 1.3 mg/dL (0.6-1.3); GLUCOSE 80 mg/dL (74-106); POTASSIUM 3.5 mmol/L (3.5-5.1); SODIUM SERUM 141 mmol/L (136-145); TOTAL PROTEIN, SERUM 7.8 g/dL (6.4-8.2); UREA NITROGEN, BLOOD 20 mg/dL (7-18)
[2022-06-02 14:29] LABS: BASOPHILS % (AUTO) 0.5 % (0.0-2.0); EOSINOPHILS % (AUTO) 0.4 % (0.0-6.0); HEMATOCRIT 41 % (39-51); HEMOGLOBIN 13.6 g/dL (13.5-17.5); LYMPHOCYTES # (AUTO) 1.6 K/uL (0.8-4.8); LYMPHOCYTES % (AUTO) 28.7 % (20.0-44.0); MEAN CORPUSCULAR HGB CONC 34 g/dl (31.0-36.0); MEAN CORPUSCULAR VOLUME 93 fL (80-96); MONOCYTES # (AUTO) 0.4 K/uL (0.1-1.30); MONOCYTES % (AUTO) 7.6 % (2.0-12.0); NEUTROPHILS # (AUTO) 3.6 K/uL (1.8-8.9); NEUTROPHILS % (AUTO) 62.8 % (43.0-81.0); PLATELET COUNT (AUTO) 229 K/uL (150-450); RED BLOOD CELL COUNT(AUTO) 4.37 MIL/uL (4.5-6.0); WHITE BLOOD COUNT (AUTO) 5.7 K/uL (4.3-11.0)
[2022-06-02 14:31] LABS: ACETAMINOPHEN 0 ug/ml (10-30); ALCOHOL, BLOOD < 3 mg/dL (0-0)
[2022-06-02 16:07] LABS: BACTERIA,URINE None seen /HPF (None Seen); CALCIUM OXALATE CRYSTALS,UR Many /HPF (None Seen); MUCUS,URINE Few /LPF (None Seen); RBC,URINE 0-2 /HPF (0-2); WBC,URINE 0-2 /HPF (0-3)
[2022-06-02 16:53] VITALS: BP 116/79
--- NOTE | 2022-06-02 17:13 | NUR ---
[facility]
--- NOTE | 2022-06-02 19:33 | NUR ---
ACCEPTED AT [facility] UNDER DR NIÑO # FOR REPORT: [phone]
--- NOTE | 2022-06-02 19:35 | NUR ---
[facility] CALLED FOR BLS TO [facility] ETA - 90 MIN
--- NOTE | 2022-06-02 22:37 | NUR ---
ATTEMPTED TO CALL REPORT. NUMBER PROVIDED WENT DIRECTLY TO VOICEMAIL. HOSPITAL NUMBER BUSY.
--- NOTE | 2022-06-02 22:40 | NUR ---
[facility] AT FOR REPORT. LEFT VOICEMAIL.
== END 2022-06-02 23:00 ==
LOC: ER 12:59
DX: F32.A Depression, unspecified (principal); Z20.822 Contact with and (suspected) exposure to COVID-19; F25.9 Schizoaffective disorder, unspecified; K51.90 Ulcerative colitis, unspecified, without complications; F17.200 Nicotine dependence, unspecified, uncomplicated; Z79.899 Other long term (current) drug therapy; Z86.69 Personal history of other diseases of the nervous system and sense organs
CPT/HCPCS: 99283; 85025; 80048; 80076; 81001; 36415; 87426; 80143; 80320; 80307; C9803; G0480

== ENCOUNTER 2022-06-15 14:37 | Emergency (ER) | payer MEDICAID ==
[~2022-06-15] VITALS: Ht 182.9 cm; Wt 86.2 kg
[2022-06-15 15:49] LABS: BASOPHILS % (AUTO) 0.4 % (0.0-2.0); EOSINOPHILS % (AUTO) 1.8 % (0.0-6.0); HEMATOCRIT 42 % (39-51); HEMOGLOBIN 14.1 g/dL (13.5-17.5); LYMPHOCYTES # (AUTO) 2.4 K/uL (0.8-4.8); LYMPHOCYTES % (AUTO) 25.8 % (20.0-44.0); MEAN CORPUSCULAR HGB CONC 34 g/dl (31.0-36.0); MEAN CORPUSCULAR VOLUME 93 fL (80-96); MONOCYTES # (AUTO) 0.6 K/uL (0.1-1.30); MONOCYTES % (AUTO) 6.2 % (2.0-12.0); NEUTROPHILS % (AUTO) 65.8 % (43.0-81.0); PLATELET COUNT (AUTO) 241 K/uL (150-450); RED BLOOD CELL COUNT(AUTO) 4.53 MIL/uL (4.5-6.0); WHITE BLOOD COUNT (AUTO) 9.2 K/uL (4.3-11.0)
[2022-06-15 16:02] LABS: ALANINE AMINOTRANSFERASE 33 U/L (12-78); ALBUMIN 4.4 g/dL (3.4-5.0); ALCOHOL, BLOOD < 3 mg/dL (0-0); ALKALINE PHOSPHATASE 98 U/L (46-116); ASPARTATE AMINOTRANSFERASE 15 U/L (15-37); BILIRUBIN,DIRECT 0.1 mg/dL (0.0-0.2); BILIRUBIN,TOTAL 0.4 mg/dL (0.2-1.0); CALCIUM, SERUM 9.6 mg/dL (8.5-10.1); CARBON DIOXIDE 30 mmol/L (21-32); CHLORIDE 102 mmol/L (98-107); CREATININE 1.1 mg/dL (0.6-1.3); GLUCOSE 90 mg/dL (74-106); SODIUM SERUM 138 mmol/L (136-145); TOTAL PROTEIN, SERUM 7.8 g/dL (6.4-8.2); UREA NITROGEN, BLOOD 18 mg/dL (7-18)
[2022-06-15 16:13] LABS: ACETAMINOPHEN 0 ug/ml (10-30)
[2022-06-15 16:18] LABS: BILIRUBIN,URINE NEGATIVE (NEGATIVE); COLOR,URINE YELLOW (YELLOW); LEUKOCYTE ESTERASE ,URINE NEGATIVE (NEGATIVE); NITRITE, URINE NEGATIVE (NEGATIVE); PROTEIN,URINE NEGATIVE (NEGATIVE); UGLUCOSE NEGATIVE (NEGATIVE); UROBILINOGEN,URINE 0.2 EU/dL (0.2)
[2022-06-16 13:00] VITALS: BP 125/76
== END 2022-06-16 14:22 ==
LOC: ER 14:42
DX: R45.851 Suicidal ideations (principal); F32.A Depression, unspecified; Z20.822 Contact with and (suspected) exposure to COVID-19; K51.90 Ulcerative colitis, unspecified, without complications; F25.9 Schizoaffective disorder, unspecified; F41.9 Anxiety disorder, unspecified; Z86.69 Personal history of other diseases of the nervous system and sense organs; Z79.899 Other long term (current) drug therapy
CPT/HCPCS: 99285; 85025; 80048; 80076; 81003; 36415; 87426; 80143; 80320; 80307; C9803; G0480

== ENCOUNTER 2022-08-02 02:15 | Emergency (ER) | payer MEDICAID ==
[~2022-08-02] VITALS: Ht 182.9 cm; Wt 86.2 kg
--- NOTE | 2022-08-02 03:06 | NUR ---
CALLED TO TRIAGE, NO ANSWER
--- NOTE | 2022-08-02 04:44 | NUR ---
PRESENTED TO THE ER FOR C/O SI PLANNING TO RUN IN TO TRAFFIC. A, OX4, AMBULATORY TO THE BATHROOM. URINE SAMPLE AND COVID SWAB OBTAINED AND SENT TO LAB. BELONGINGS WERE TAKEN AND PLACED IN THE LOCKER. GOWNED UP AND PLACED ON SI PRECAUTION. PT WS NOTED WOTH L HAND/ WRIST CAST WHICH MADE AWARE OF. VSS. WILL CONT TO MONITOR
[2022-08-02 05:14] LABS: BASOPHILS % (AUTO) 0.2 % (0.0-2.0); EOSINOPHILS % (AUTO) 2.8 % (0.0-6.0); HEMATOCRIT 42 % (39-51); HEMOGLOBIN 14.2 g/dL (13.5-17.5); LYMPHOCYTES # (AUTO) 1.7 K/uL (0.8-4.8); LYMPHOCYTES % (AUTO) 28.2 % (20.0-44.0); MEAN CORPUSCULAR HGB CONC 34 g/dl (31.0-36.0); MEAN CORPUSCULAR VOLUME 91 fL (80-96); MONOCYTES # (AUTO) 0.8 K/uL (0.1-1.30); MONOCYTES % (AUTO) 13.3 % (2.0-12.0); NEUTROPHILS # (AUTO) 3.3 K/uL (1.8-8.9); NEUTROPHILS % (AUTO) 55.5 % (43.0-81.0); PLATELET COUNT (AUTO) 231 K/uL (150-450); RED BLOOD CELL COUNT(AUTO) 4.55 MIL/uL (4.5-6.0)
[2022-08-02 05:20] LABS: BILIRUBIN,URINE NEGATIVE (NEGATIVE); COLOR,URINE YELLOW (YELLOW); LEUKOCYTE ESTERASE ,URINE NEGATIVE (NEGATIVE); NITRITE, URINE NEGATIVE (NEGATIVE); PH,URINE 6.5 (5.0-8.0); PROTEIN,URINE NEGATIVE (NEGATIVE); UGLUCOSE NEGATIVE (NEGATIVE); UROBILINOGEN,URINE 0.2 EU/dL (0.2)
[2022-08-02 05:50] LABS: CALCIUM, SERUM 8.8 mg/dL (8.5-10.1); CARBON DIOXIDE 28 mmol/L (21-32); CHLORIDE 110 mmol/L (98-107); CREATININE 1.1 mg/dL (0.6-1.3); GLUCOSE 96 mg/dL (74-106); POTASSIUM 4.1 mmol/L (3.5-5.1); SODIUM SERUM 137 mmol/L (136-145); UREA NITROGEN, BLOOD 17 mg/dL (7-18)
[2022-08-02 05:56] LABS: ACETAMINOPHEN 0 ug/ml (10-30); ALANINE AMINOTRANSFERASE 25 U/L (12-78); ALCOHOL, BLOOD < 3 mg/dL (0-0); ALKALINE PHOSPHATASE 108 U/L (46-116); ASPARTATE AMINOTRANSFERASE 32 U/L (15-37); BILIRUBIN,DIRECT 0.1 mg/dL (0.0-0.2); BILIRUBIN,TOTAL 0.6 mg/dL (0.2-1.0); TOTAL PROTEIN, SERUM 7.6 g/dL (6.4-8.2)
--- NOTE | 2022-08-02 07:02 | NUR ---
FAXED CLINICALS TO [facility]
--- NOTE | 2022-08-02 11:10 | NUR ---
ACCEPTED AT [facility]. REPORT TO NURSING WIDE AREA NETWORK SYSTEMS ADMINISTRATOR [phone] TRANSPORT ARRIVAL ETA 1130
--- NOTE | 2022-08-02 11:12 | NUR ---
TRIED TO GIVE REPORT, WENT TO VOICE MAIL.
[2022-08-02 12:17] VITALS: BP 145/88
--- NOTE | 2022-08-02 12:18 | NUR ---
picked up by emt to go back to facility
== END 2022-08-02 12:20 ==
LOC: ER 02:16
DX: R45.851 Suicidal ideations (principal); Z59.02 Unsheltered homelessness; F25.9 Schizoaffective disorder, unspecified; R03.0 Elevated blood-pressure reading, without diagnosis of hypertension; K51.90 Ulcerative colitis, unspecified, without complications; F41.9 Anxiety disorder, unspecified; G47.00 Insomnia, unspecified; Z79.899 Other long term (current) drug therapy; Z20.822 Contact with and (suspected) exposure to COVID-19
CPT/HCPCS: 99285; 85025; 80048; 80076; 81003; 36415; 87426; 80143; 80320; 80307; C9803; G0480